=== PATIENT | female | born 1985 | race Caucasian/White ===

== ENCOUNTER 2019-08-30 02:52 | Inpatient (IN) ==
--- OUTSIDE RECORDS SUMMARY | 2019-08-30 02:55 | External Medical Summary | Continuity of Care Document ---
:1985 Author Name Tamika Pinto Address Unavailable Unavailable , Care Team Providers Name Role Phone Unavailable Unavailable Unavailable Blaze Pinto Unavailable [email or web address] [email or web address]., Jodi Unavailable Unavailable Mauricio Yarbrough M.D. Unavailable [email or web address] Unavailable Unavailable Unavailable Problems Encounter for gynecological examination without abnormal finding (V72.31) (Z01.419) Screening for STD (sexually transmitted disease) (V74.5) (Z1 1.3) Fatigue (780.79) (R53.83) Anxiety (300.00) (F41.9) Tobacco abuse (305.1) (Z72.0) Impaired fasting glucose (790.21) (R73.01) Allergies and Adverse Reactions Bactrim TABS (Allergy) Reaction: Rash Medications Methadone HCl SHERLYN , MosheDWoo Refills: 0 Chantix Continuing Month Davian 1 MG Oral T ablet; TAKE DIRECTED PER PACKAGE INSTRUCTIONS. Blair Thakur Start: 19-Sep-2016 Quantity: 1 56 Tablet Disp Pack Refills: 1 Chantix Starting Month Davian 0.5 MG X 11 & 1 MG X 42 Oral Tablet; TAKE DIRECTED PER PACKAGE INSTRUCTIONS. Blair Thakur Start: 19-Sep-2016 Quantity: 1 53 Tablet Disp Pack Refills: 0 Procedures History of Oral Surgery Tooth Extraction Status: Completed History of Section Low Transverse Status: Completed History of Oral Surgery Tooth Extraction Status: Completed History of Neck Surgery Status: Complete d History of Tubal Ligation Status: Comple camryn History of Supervision of normal Status: Completed Immunizations Influenza (Whole) On: 13-Aug-2011 10:25 Lot #: [id number], [employer] Family History Mother Family history of Anxiety (300.00) (F41.9) Status: Active Family history of gallbladder disease (V18.59) (Z83.79) Stat us: Active Family history of depression (V17.0) (Z81.8) Status: Active Grandmother Family history of Heart Disease (V17.49) Status: Active Grandfather Family history of Heart Disease (V17.49) Status: Active Family history of Alcohol Abuse Status: Active aunt Family history of Anxiety Status: Active uncle Family history of Anxiety Status: Active Unknown Family Member Family history of Anxiety Status: Active Comments: Fam alicia History Family history of Depression Status: Active Comments: Family History Father Family history of attention deficit hyperactivity diso rder (ADHD) Status: Active (V17.0) (Z81.8) Family history of diabetes mellitus (V18.0) (Z83.3) Status: Active natural daughter Family history of attention deficit hyperactivity diso rder (ADHD) Status: Active (V17.0) (Z81.8) Grandmother Family history of depression (V17.0) (Z81.8) Status: Active Social History - Smoking Status Smoker. current status unknown Plan of Treatment Planned Observations Planned Goals not documented Results No Known Results Results not documented
[2019-08-30] MEDS ORDERED: ALBUT/IPRATROP 3MG/0.5MG NEB 3 ML VIAL NEB ONE (03:43)
[2019-08-30] MEDS ORDERED: DiphenhydrAMINE HCL 50 MG/ML VIAL IV STA (03:43)
[2019-08-30] MEDS ORDERED: methylPREDNISolone 125 MG/2 ML VIAL IV STA (03:43)
[2019-08-30] MEDS ORDERED: PIPERACILLIN/TAZOBACTAM 4.5 GM/120 ML BAG IV ONE (04:00)
[2019-08-30] MEDS ORDERED: LEVOFLOXACIN/D5W 750 MG/150 ML BAG IV STA (04:00)
[2019-08-30] MEDS ORDERED: PIPERACILL/TAZOBAC CONSULT ACTIVE PRN (04:00)
[2019-08-30 04:41] LABS: Basophils # (auto) 0.02 K/uL (0-0.2); Basophils % (auto) 0.2 %; Eosinophils % (auto) 1.6 %; Hematocrit (blood only) 34.4 % (37-47); Hemoglobin 12.5 g/dL (12.0-16.0); Immature Granulocytes # (auto) 0.04 K/uL (0.00-0.02); Immature Granulocytes % (auto) 0.3 %; Lymphocytes # (auto) 1.18 K/uL (1.2-3.4); Lymphocytes % (auto) 9.6 %; Mean Corpuscular Hemoglobin 32.6 pg (25-34); Mean Corpuscular Hgb Conc 36.3 g/dL (32-36); Mean Corpuscular Volume 89.6 fL (80-100); Mean Platelet Volume 9.8 fL (7.4-10.4); Neutrophils # (auto) 9.74 K/uL (1.4-6.5); Neutrophils % (auto) 79.3 %; Platelet Count 240 K/uL (130-400); RDW Coefficient of Variation 11.5 % (11.5-14.5); RDW Standard Deviation 37.7 fL (36.4-46.3); Red Blood Count 3.84 M/uL (4.2-5.4); White Blood Count 12.28 K/uL (4.8-10.8)
[2019-08-30 04:52] LABS: INR 1.2 (0.9-1.1); Partial Thromboplastin Ratio 1.3; Partial Thromboplastin Time 34.1 Seconds (21.0-31.0); Prothrombin Time 11.7 Seconds (9.0-12.0)
[2019-08-30 04:59] LABS: Alanine Aminotransferase 45 U/L (12-78); Albumin Level 3.1 gm/dl (3.4-5.0); Aspartate Aminotransferase 44 U/L (15-37); Blood Urea Nitrogen 8 mg/dl (7-18); Calcium 8.2 mg/dl (8.5-10.1); Carbon Dioxide 23 mmol/L (21-32); Chloride 100 mmol/L (98-107); Creatinine Clr Calc Pharmacy 131.4 ml/min; Est GFR (African American) 133.6; Est GFR (Non-African American) 115.3; Glucose 79 mg/dl (70-99); Potassium 2.9 mmol/L (3.5-5.1); Sodium 134 mmol/L (136-145)
[2019-08-30 05:04] LABS: Albumin Globulin Ratio 0.8 (0.9-2); Alkaline Phosphatase 71 U/L (45-117); Bilirubin,Total 0.8 mg/dl (0.2-1); Creatine Kinase 681 U/L (26-192); Creatine Kinase MB 7.2 ng/ml (0.5-3.6); Globulin 3.9 gm/dl (2.5-4.0); Troponin I < 0.015 ng/ml (0-0.045)
[2019-08-30 05:06] LABS: Appearance Urine Cloudy (Clear); Bilirubin Urine Negative (Negative); Blood Urine Negative (Negative); Color Urine Yellow; Glucose Urine UA Negative (Negative); Ketones Urine 1+ (Negative); Leukocyte Esterase Urine 2+ (Negative); Nitrite Urine Negative (Negative); Protein Urine Negative (Negative); Specific Gravity Urine 1.008 (1.000-1.030); Urobilinogen Urine Negative (Negative); pH Urine 6.5 (4.5-7.5)
[2019-08-30] MEDS ORDERED: POTASSIUM CHLORIDE 20 MEQ TABCR PO STA (05:07)
[2019-08-30] MEDS ORDERED: ONDANSETRON INJ 2 MG/ML 2 ML VIAL IV STA (05:09)
[2019-08-30] MEDS ORDERED: SODIUM CHLORIDE 0.9% 1000ML 1,000 ML IV ONE ×2 (05:10→05:36)
[2019-08-30] MEDS ORDERED: SODIUM CHLORIDE 0.9% 500 ML IV ONE (05:36)
[2019-08-30] MEDS ORDERED: OPTIRAY 320 125ml IV PRN (05:41)
[2019-08-30 05:44] LABS: Bacteria Urine Automated Negative (Negative); Cast Urine Automated 0 /lpf (0-5); Epithelial Cell Urine Auto >30 /lpf (0-5); RBC Urine Automated 0-4 /hpf (0-4)
--- NOTE | 2019-08-30 05:46 | Emergency Department Note ---
Entered by Jace Woods acting as a scribe for Sukhdev Elmore MD History of Present Illness General Chief complaint: Rash Stated complaint: RASH,FEVER,COUGH Time Seen by Provider: 08/30/19 03:20 Source: patient History of Present Illness Onset (ago): day(s) 2 Location: head, chest and back Pain Consistency: + constant Quality: + other (rash) Associated symptoms: + other (Positive for itchiness, fever, and cough.) Treatments prior to arrival: other (Benadryl) The patient is a 34 year old female who presents to the emergency department with complaints of a constant rash beginning 2 days ago. The patient states that she developed a rash on her head, chest, and back 2 days ago. She notes that her rash is starting to itch. She reports that she has never had a rash like this before. The patient also complains of a fever and a cough. She states that she has had a cough for a few weeks. She notes that her cough started to get better, but she reports that it is getting worse again. The patient states that she took Benadryl 4 hours ago with mild relief of her symptoms. She notes that she is vaccinated. She reports that she did meth over the weekend. Home Medications Home Medications Medication Instructions Recorded Confirmed Type divalproex [Depakote ER] 0 mg PO DAILY 08/30/19 08/30/19 History Allergies Allergy/AdvReac Type Severity Reaction Status Date / Time Bactrim Allergy Intermediate HIVES Verified 10/07/15 01:17 sulfamethoxazole Allergy Intermediate HIVES Verified 08/30/19 03:19 trimethoprim Allergy Intermediate HIVES Verified 08/30/19 03:19 Penicillins Allergy Unknown PT DENIES Verified 08/30/19 03:19 PCN ALLERGY Past Med/Surg History Medical History Pain, dental (Acute) Tick bite of lower leg (Acute) Family History Other No significant family history Social History Preferred Language: Divehi Feels Safe at Home: Yes Smoking Status: Current every day smoker Hx Substance Use: Yes substance use type: methamphetamine Review of Systems See HPI for pertinent positives & negatives. and A total of 10 systems reviewed and were otherwise negative Physical Exam Vital Signs Vital Signs - 24 hr 08/30/19 03:06 08/30/19 03:45 08/30/19 04:14 Temperature 36.7 C Temperature Source Oral Sepsis Recent Fever Within 48 Hours No Sepsis New/Unexplained Change in Mental Status No Sepsis Action Taken by Nursing No Action Required Pulse Rate 88 Pulse Rate [Right Radial] 89 Pulse Rate from SpO2 Sensor Respiratory Rate 16 22 Respiratory Effort / Characteristics Non-Labored Spontaneous Blood Pressure 118/64 Blood Pressure [Left Arm] Blood Pressure Mean 82 Blood Pressure Mean [Left Arm] Pulse Oximetry 97 90 95 Oxygen Delivery Method Room Air Nebulizer Room Air Oxygen Flow Rate 6 08/30/19 04:39 08/30/19 04:41 08/30/19 05:00 Temperature Temperature Source Sepsis Recent Fever Within 48 Hours Sepsis New/Unexplained Change in Mental Status Sepsis Action Taken by Nursing Pulse Rate 99 H 109 H 104 H Pulse Rate [Right Radial] Pulse Rate from SpO2 Sensor 97 H 103 H 106 H Respiratory Rate 22 32 H 34 H Respiratory Effort / Characteristics Blood Pressure 111/67 Blood Pressure [Left Arm] Blood Pressure Mean 81 Blood Pressure Mean [Left Arm] Pulse Oximetry 97 96 95 Oxygen Delivery Method Oxygen Flow Rate 08/30/19 05:42 08/30/19 06:00 08/30/19 06:07 Temperature Temperature Source Sepsis Recent Fever Within 48 Hours Sepsis New/Unexplained Change in Mental Status Sepsis Action Taken by Nursing Pulse Rate 95 H 93 H Pulse Rate [Right Radial] Pulse Rate from SpO2 Sensor 95 H 93 H Respiratory Rate 26 H 32 H Respiratory Effort / Characteristics Blood Pressure 116/59 L 102/43 L Blood Pressure [Left Arm] Blood Pressure Mean 78 62 Blood Pressure Mean [Left Arm] Pulse Oximetry 91 91 87 L Oxygen Delivery Method Room Air Oxygen Flow Rate 08/30/19 06:08 08/30/19 07:00 Temperature Temperature Source Sepsis Recent Fever Within 48 Hours Sepsis New/Unexplained Change in Mental Status Sepsis Action Taken by Nursing Pulse Rate Pulse Rate [Right Radial] 94 H Pulse Rate from SpO2 Sensor Respiratory Rate 18 Respiratory Effort / Characteristics Blood Pressure Blood Pressure [Left Arm] 117/71 Blood Pressure Mean Blood Pressure Mean [Left Arm] 86 Pulse Oximetry 92 95 Oxygen Delivery Method Nasal Cannula Nasal Cannula Oxygen Flow Rate 2 2 GENERAL: Awake, alert, well-appearing, in no acute distress HENT: Normocephalic, atraumatic. Oropharynx unremarkable. EYES: Normal conjunctiva. Sclera non-icteric. NECK: Supple. No nuchal rigidity. FROM. No JVD. RESPIRATORY: Clear to auscultation. CARDIAC: Regular rate, normal rhythm. Extremities warm and well perfused. Pulses equal. ABDOMEN: Soft, non-distended. No tenderness to palpation. No rebound or guarding. No masses. RECTAL: Deferred. MUSCULOSKELETAL: Chest examination reveals no tenderness. The back is symmetrical on inspection without obvious abnormality. There is no CVA tenderness to palpation. No joint edema. LOWER EXTREMITIES: Calves are equal size bilaterally and non-tender. No edema. No discoloration. NEURO: Normal sensorium. No sensory or motor deficits noted. SKIN: No jaundice noted. Rash present on face, chest, and back that is urticarial in nature. Course 0340: The patient was evaluated in room B9. A complete history and physical exam was performed. 0615: Upon reevaluation, the patient is stable. I discussed the findings and the treatment plan with the patient. She expresses agreement and understanding. I spoke with Dr. Camara of the [facility]. The patient will be evaluated for further management. Consultations Consultation #1: I reviewed the patient's case with Dr. Camara - Hospitalist, [facility]. He will evaluate the patient for further management. Time: 06:15 Administered Medications Potassium Chloride (K Clark / Wtr) 10 meq in 100 mls @ 100 mls/hr IV Q1H WILNER Stop: 08/30/19 07:14 Last Infusion: 08/30/19 06:59 Dose: 0 mls/hr Documented by: [id number] Admin: 08/30/19 05:53 Dose: 100 mls/hr Documented by: [id number] Ioversol (Optiray 320 125ml) 87 ml IV ONCE PRN PRN Reason: Interaction Checking Stop: 09/03/19 05:40 Last Admin: 08/30/19 05:41 Dose: 87 ml Documented by: [id number] Discontinued Medications Albuterol (Duoneb) 12 ml NEB ONE ONE Stop: 08/30/19 03:44 Last Admin: 08/30/19 04:11 Dose: 12 ml Documented by: [id number] Diphenhydramine HCl (Benadryl) 50 mg IV NOW STA Stop: 08/30/19 03:44 Last Admin: 08/30/19 04:16 Dose: 50 mg Documented by: [id number] Ranitidine HCl 50 mg/ Dextrose 102 mls @ 200 mls/hr IV NOW STA Stop: 08/30/19 04:13 Last Infusion: 08/30/19 05:26 Dose: 0 mls/hr Documented by: [id number] Admin: 08/30/19 04:31 Dose: 200 mls/hr Documented by: [id number] Piperacillin Sod/Tazobactam Sod (Zosyn) 4.5 gm in 120 mls @ 240 mls/hr IV NOW ONE Stop: 08/30/19 04:29 Last Infusion: 08/30/19 05:26 Dose: 0 mls/hr Documented by: [id number] Admin: 08/30/19 04:35 Dose: 240 mls/hr Documented by: [id number] Levofloxacin/Dextrose (Levaquin/D5w) 750 mg in 150 mls @ 100 mls/hr IV NOW STA Stop: 08/30/19 05:29 Last Infusion: 08/30/19 06:59 Dose: 0 mls/hr Documented by: [id number] Admin: 08/30/19 05:25 Dose: 100 mls/hr Documented by: [id number] Sodium Chloride (Nss 1000ml) 1,000 mls @ 999 mls/hr IV .Q1H1M ONE Stop: 08/30/19 06:10 Last Infusion: 08/30/19 06:59 Dose: 0 mls/hr Documented by: [id number] Admin: 08/30/19 05:52 Dose: 999 mls/hr Documented by: [id number] Methylprednisolone (Solumedrol) 125 mg IV NOW STA Stop: 08/30/19 03:44 Last Admin: 08/30/19 04:16 Dose: 125 mg Documented by: [id number] Ondansetron HCl (Zofran) 4 mg IV NOW STA Stop: 08/30/19 05:10 Last Admin: 08/30/19 05:26 Dose: 4 mg Documented by: [id number] Potassium Chloride (Klor-Con M20) 40 meq PO NOW STA Stop: 08/30/19 05:08 Last Admin: 08/30/19 05:26 Dose: 40 meq Documented by: [id number] Medical Decision Making Differential Diagnosis Differential: Contact Dermatitis, Viral Exanthum, Urticaria, Allergic Reaction, SJS, Toxic Epidermal Necrolysis, Erythema Multiforme, Cellulitis, Scabies, HSV, Varicella, Zoster, Eczema, Staph Scalded Skin, Fungal, amongst other pathologies entertained. Medical Records Attestation: I reviewed the patient's medical records. Home Medications Current Medication List: was personally reviewed by me Laboratory Data Attestation: I reviewed the patient's lab results. Result diagrams: 08/30/19 04:32 08/30/19 04:32 Lab Results 08/30/19 08/30/19 08/30/19 Range/Units 04:07 04:32 04:32 WBC 12.28 H (4.8-10.8) K/uL RBC 3.84 L (4.2-5.4) M/uL Hgb 12.5 (12.0-16.0) g/dL Hct 34.4 L (37-47) % MCV 89.6 (80-100) fL MCH 32.6 (25-34) pg MCHC 36.3 H (32-36) g/dL RDW Std Deviation 37.7 (36.4-46.3) fL RDW Coeff of Kulwinder 11.5 (11.5-14.5) % Plt Count 240 (130-400) K/uL MPV 9.8 (7.4-10.4) fL Immature Gran % (Auto) 0.3 % Neut % (Auto) 79.3 % Lymph % (Auto) 9.6 % [place] % (Auto) 9.0 % Eos % (Auto) 1.6 % Baso % (Auto) 0.2 % Immature Gran # (Auto) 0.04 H (0.00-0.02) K/uL Neut # (Auto) 9.74 H (1.4-6.5) K/uL Lymph # (Auto) 1.18 L (1.2-3.4) K/uL [place] # (Auto) 1.10 H (0.11-0.59) K/uL Eos # (Auto) 0.20 (0-0.5) K/uL Baso # (Auto) 0.02 (0-0.2) K/uL PT 11.7 (9.0-12.0) Seconds INR 1.2 H (0.9-1.1) APTT 34.1 H (21.0-31.0) Seconds PTT Ratio 1.3 Sodium (136-145) mmol/L Potassium (3.5-5.1) mmol/L Chloride (98-107) mmol/L Carbon Dioxide (21-32) mmol/L Anion Gap (3-11) BUN (7-18) mg/dl Creatinine (0.6-1.2) mg/dl Est Cr Clr Drug Dosing ml/min Est GFR ( Amer) Est GFR (Non-Af Amer) BUN/Creatinine Ratio (10-20) Glucose (70-99) mg/dl Lactate 1.1 (0.4-2.0) mmol/L Calcium (8.5-10.1) mg/dl Phosphorus (2.5-4.9) mg/dl Magnesium (1.8-2.4) mg/dl Total Bilirubin (0.2-1) mg/dl AST (15-37) U/L ALT (12-78) U/L Alkaline Phosphatase (45-117) U/L Total Creatine Kinase (26-192) U/L CK-MB (CK-2) (0.5-3.6) ng/ml CK/CKMB % Calc (0-3.0) Troponin I (0-0.045) ng/ml Total Protein (6.4-8.2) gm/dl Albumin (3.4-5.0) gm/dl Globulin (2.5-4.0) gm/dl Albumin/Globulin Ratio (0.9-2) Urine Color Urine Appearance (Clear) Urine pH (4.5-7.5) Ur Specific May (1.000-1.030) Urine Protein (Negative) Urine Glucose (UA) (Negative) Urine Ketones (Negative) Urine Blood (Negative) Urine Nitrite (Negative) Urine Bilirubin (Negative) Urine Urobilinogen (Negative) Ur Leukocyte Esterase (Negative) Urine WBC (Auto) (0-5) /hpf Urine RBC (Auto) (0-4) /hpf U Hyaline Cast (Auto) (0-5) /lpf U Epithel Cells (Auto) (0-5) /lpf Urine Bacteria (Auto) (Negative) Urine Test (Negative) Urine Opiates Screen (Neg) Ur Methadone, Qual (Neg) Urine Barbiturates (Neg) Ur Phencyclidine (PCP) (Neg) U Amphetamin/Meth Scrn (Neg) MDMA (Ecstasy) Screen (Neg) U Benzodiazepines Scrn (Neg) Ur Cocaine Metabolite (Neg) U Marijuana (THC) Screen (Neg) 10/01/19 10/01/19 10/01/19 Range/Units 04:32 04:32 04:54 WBC (4.8-10.8) K/uL RBC (4.2-5.4) M/uL Hgb (12.0-16.0) g/dL Hct (37-47) % MCV (80-100) fL MCH (25-34) pg MCHC (32-36) g/dL RDW Std Deviation (36.4-46.3) fL RDW Coeff of Kulwinder (11.5-14.5) % Plt Count (130-400) K/uL MPV (7.4-10.4) fL Immature Gran % (Auto) % Neut % (Auto) % Lymph % (Auto) % [place] % (Auto) % Eos % (Auto) % Baso % (Auto) % Immature Gran # (Auto) (0.00-0.02) K/uL Neut # (Auto) (1.4-6.5) K/uL Lymph # (Auto) (1.2-3.4) K/uL [place] # (Auto) (0.11-0.59) K/uL Eos # (Auto) (0-0.5) K/uL Baso # (Auto) (0-0.2) K/uL PT (9.0-12.0) Seconds INR (0.9-1.1) APTT (21.0-31.0) Seconds PTT Ratio Sodium 134 L (136-145) mmol/L Potassium 2.9 L (3.5-5.1) mmol/L Chloride 100 (98-107) mmol/L Carbon Dioxide 23 (21-32) mmol/L Anion Gap 11.0 (3-11) BUN 8 (7-18) mg/dl Creatinine 0.66 (0.6-1.2) mg/dl Est Cr Clr Drug Dosing 131.4 ml/min Est GFR ( Amer) 133.6 Est GFR (Non-Af Amer) 115.3 BUN/Creatinine Ratio 12.0 (10-20) Glucose 79 (70-99) mg/dl Lactate (0.4-2.0) mmol/L Calcium 8.2 L (8.5-10.1) mg/dl Phosphorus 2.5 (2.5-4.9) mg/dl Magnesium 2.3 (1.8-2.4) mg/dl Total Bilirubin 0.8 (0.2-1) mg/dl AST 44 H (15-37) U/L ALT 45 (12-78) U/L Alkaline Phosphatase 71 (45-117) U/L Total Creatine Kinase 681 H (26-192) U/L CK-MB (CK-2) 7.2 H (0.5-3.6) ng/ml CK/CKMB % Calc 1.1 (0-3.0) Troponin I < 0.015 (0-0.045) ng/ml Total Protein 7.0 (6.4-8.2) gm/dl Albumin 3.1 L (3.4-5.0) gm/dl Globulin 3.9 (2.5-4.0) gm/dl Albumin/Globulin Ratio 0.8 L (0.9-2) Urine Color Yellow Urine Appearance Cloudy A (Clear) Urine pH 6.5 (4.5-7.5) Ur Specific May 1.008 (1.000-1.030) Urine Protein Negative (Negative) Urine Glucose (UA) Negative (Negative) Urine Ketones 1+ H (Negative) Urine Blood Negative (Negative) Urine Nitrite Negative (Negative) Urine Bilirubin Negative (Negative) Urine Urobilinogen Negative (Negative) Ur Leukocyte Esterase 2+ H (Negative) Urine WBC (Auto) 5-10 H (0-5) /hpf Urine RBC (Auto) 0-4 (0-4) /hpf U Hyaline Cast (Auto) 0 (0-5) /lpf U Epithel Cells (Auto) >30 H (0-5) /lpf Urine Bacteria (Auto) Negative (Negative) Urine Test (Negative) Urine Opiates Screen (Neg) Ur Methadone, Qual (Neg) Urine Barbiturates (Neg) Ur Phencyclidine (PCP) (Neg) U Amphetamin/Meth Scrn (Neg) MDMA (Ecstasy) Screen (Neg) U Benzodiazepines Scrn (Neg) Ur Cocaine Metabolite (Neg) U Marijuana (THC) Screen (Neg) 08/30/19 08/30/19 Range/Units 04:54 04:54 WBC (4.8-10.8) K/uL RBC (4.2-5.4) M/uL Hgb (12.0-16.0) g/dL Hct (37-47) % MCV (80-100) fL MCH (25-34) pg MCHC (32-36) g/dL RDW Std Deviation (36.4-46.3) fL RDW Coeff of Kulwinder (11.5-14.5) % Plt Count (130-400) K/uL MPV (7.4-10.4) fL Immature Gran % (Auto) % Neut % (Auto) % Lymph % (Auto) % [place] % (Auto) % Eos % (Auto) % Baso % (Auto) % Immature Gran # (Auto) (0.00-0.02) K/uL Neut # (Auto) (1.4-6.5) K/uL Lymph # (Auto) (1.2-3.4) K/uL [place] # (Auto) (0.11-0.59) K/uL Eos # (Auto) (0-0.5) K/uL Baso # (Auto) (0-0.2) K/uL PT (9.0-12.0) Seconds INR (0.9-1.1) APTT (21.0-31.0) Seconds PTT Ratio Sodium (136-145) mmol/L Potassium (3.5-5.1) mmol/L Chloride (98-107) mmol/L Carbon Dioxide (21-32) mmol/L Anion Gap (3-11) BUN (7-18) mg/dl Creatinine (0.6-1.2) mg/dl Est Cr Clr Drug Dosing ml/min Est GFR ( Amer) Est GFR (Non-Af Amer) BUN/Creatinine Ratio (10-20) Glucose (70-99) mg/dl Lactate (0.4-2.0) mmol/L Calcium (8.5-10.1) mg/dl Phosphorus (2.5-4.9) mg/dl Magnesium (1.8-2.4) mg/dl Total Bilirubin (0.2-1) mg/dl AST (15-37) U/L ALT (12-78) U/L Alkaline Phosphatase (45-117) U/L Total Creatine Kinase (26-192) U/L CK-MB (CK-2) (0.5-3.6) ng/ml CK/CKMB % Calc (0-3.0) Troponin I (0-0.045) ng/ml Total Protein (6.4-8.2) gm/dl Albumin (3.4-5.0) gm/dl Globulin (2.5-4.0) gm/dl Albumin/Globulin Ratio (0.9-2) Urine Color Urine Appearance (Clear) Urine pH (4.5-7.5) Ur Specific May (1.000-1.030) Urine Protein (Negative) Urine Glucose (UA) (Negative) Urine Ketones (Negative) Urine Blood (Negative) Urine Nitrite (Negative) Urine Bilirubin (Negative) Urine Urobilinogen (Negative) Ur Leukocyte Esterase (Negative) Urine WBC (Auto) (0-5) /hpf Urine RBC (Auto) (0-4) /hpf U Hyaline Cast (Auto) (0-5) /lpf U Epithel Cells (Auto) (0-5) /lpf Urine Bacteria (Auto) (Negative) Urine Test Negative (Negative) Urine Opiates Screen Neg (Neg) Ur Methadone, Qual Neg (Neg) Urine Barbiturates Neg (Neg) Ur Phencyclidine (PCP) Neg (Neg) U Amphetamin/Meth Scrn Pos H (Neg) MDMA (Ecstasy) Screen Neg (Neg) U Benzodiazepines Scrn Neg (Neg) Ur Cocaine Metabolite Neg (Neg) U Marijuana (THC) Screen Neg (Neg) Imaging Data Attestation: I personally reviewed and interpreted this imaging study as follows: My Impression: CHEST X-RAY: Bilateral pneumonia. No evidence of congestion or pneumothorax. Radiologist's Impression: Radiology results as stated below per my review and the radiologist's interpretation: CTA CHEST: No priors. There is artifact limiting evaluation for small peripheral PE. No central PE. Bilateral lung opacities suspicious for pneumonia. There are airspace opacities as well as tree-in-bud/nodular opacities. Adenopathy, example mediastinal and hilar stations. Suggest follow-up to resolution. Old granulomatous disease. Calcified and noncalcified lung nodules. Radiologist: Pj Calvo MD. ECG Data Attestation: I personally reviewed and interpreted this ECG as follows: Indication: other (rash) Rate (beats per minute): 89 Rhythm: normal sinus Findings: no ST depression and no ST elevation Additional Comments: Normal EKG. Blood Pressure Blood Pressure Findings: Elevated blood pressure Blood Pressure Disposition: further management by hospitalist MDM Narrative This is a 34-year-old female who presents emergency department complaining of a diffuse rash to her chest head and back. The patient does admit to using meth over the weekend. She also reports that she had a cough that had been improving which is now worsening. The patient was given a normal saline bolus x3 here in the emergency department. Her potassium was repleted. The patient's chest x- ray is concerning for multifocal pneumonia. The patient was sent for CAT scan of the chest. This was also concerning for PE. The patient's potassium was found to be low she was started on IV potassium and given oral potassium. She was also given Solu-Medrol Zantac and Benadryl for the rash. Due to the patient's tachycardia as well as her multiple findings she was discussed with the hospitalist service who agreed to admit the patient. Patient was in agreement with the treatment plan. Impression & Plan Rash, Pneumonia, Acute hypokalemia, Methamphetamine use, Pulmonary emboli Critical Care Time I have personally spent greater than 30 minutes of critical care time in the direct management of this patient. This includes bedside care, interpretation of diagnostic studies, and testing, discussion with consultants, patient, and family members, and other required patient management activities. This 30 minutes is in excess of all separately billable procedures. Discharge Plan Visit Data Chief Complaint: Rash Stated Complaint: RASH,FEVER,COUGH ED Provider: Sukdhev Elmore Discharge Problem: Rash, Pneumonia, Acute hypokalemia, Methamphetamine use, Pulmonary emboli Patient Disposition: Being Evaluated by Hospitalist Forms Stand Alone Forms: [employer] Prescriptions Prescriptions: No Action divalproex [Depakote ER] 500 mg Tablet Extended Release 24 Hr PO DAILY RF: 0 Referrals Referrals: PCP,NO [Primary Care Provider] - Discharge Problem: Pneumonia Qualifiers: Pneumonia type: due to unspecified organism Laterality: unspecified laterality Lung location: unspecified part of lung Qualified Code(s): J18.9 - Pneumonia, unspecified organism Pulmonary emboli Qualifiers: Pulmonary embolism type: unspecified Chronicity: unspecified Acute cor pulmonale presence: unspecified Qualified Code(s): I26.99 - Other pulmonary embolism without acute cor pulmonale The scribe's documentation has been prepared under my direction and personally reviewed by me in its entirety. I confirm that the note above accurately reflects all work, treatment, procedures, and medical decision making performed by me.
[2019-08-30] MEDS: POTASSIUM CHLORIDE / WTR 10 MEQ/100 ML PLCT IV SCH ×2 (05:53→07:00)
[2019-08-30 05:55] LABS: Magnesium 2.3 mg/dl (1.8-2.4); Phosphorus 2.5 mg/dl (2.5-4.9)
[2019-08-30 06:08] LABS: Pregnancy Test, Urine Negative (Negative)
[2019-08-30 06:25] LABS: Amphetamines+Metham, Urine Pos (Neg); Barbiturates, Urine Neg (Neg); Benzodiazepine, Urine Neg (Neg); Cocaine, Urine Neg (Neg); MDMA (Ecstacy), Urine Neg (Neg); Methadone, Urine Neg (Neg); Opiate, Urine Neg (Neg); Phencyclidine, Urine Neg (Neg)
[2019-08-30] MEDS ORDERED: DAPTOmycin 375 MG in SYRINGE 0 ML IV ONE (06:46)
--- NOTE | 2019-08-30 06:46 | Ultrasound Report ---
US venous doppler LE BI CLINICAL HISTORY: Pulmonary embolism. SHORTNESS OF BREATH AND COUGH COMPARISON STUDY: 05/29/2012 FINDINGS: Real-time and color flow Doppler imaging were performed. Flow was seen within the femoral, popliteal and calf veins with no intraluminal thrombus demonstrated. The saphenous vein is patent. IMPRESSION: No evidence of lower extremity DVT. Electronically signed by: Gaudencio Pratt M.D. 08/30/2019 6:44 AM
--- NOTE | 2019-08-30 07:27 | CT Scan Report ---
CHEST CTA for PULMONARY ARTERIES CT DOSE: 286.95 mGy.cm HISTORY: Shortness of breath. TECHNIQUE: Multiaxial CT images of the chest were performed following the intravenous administration of contrast to evaluate the pulmonary arteries. Maximal intensity projection images were also obtaine d. A dose lowering technique was utilized adhering to the principles of ALARA. COMPARISON STUDY: None. FINDINGS: Normal caliber thoracic aorta with no evidence for dissection. The heart is normal in size. No pleural or pericardial effusions. No filling defects within the pulmonary arteries to suggest pul monary embolus. The visualized liver and adrenal glands unremarkable. Punctate calcified granulomas w ithin the spleen. A single mildly enlarged right neck base/supra clavicular lymph node measuring 1.3 x 0.8 cm. Mildly enlarged mediastinal and bilateral hilar lymphadenopathy. This is most pronounced on the left which demonstrates a 1.4 cm left hilar lymph node. Normal esophagus. No suspicious lytic ar e blastic osseous lesions. No pneumothorax. The central airways demonstrate mild bronchial wall thick ening. Multifocal areas of consolidation with tree-in-bud nodular opacities seen primarily within the bilateral lower lung zones. This is most pronounced within the lingula and right lower lobe. IMPRESSION: 1. No evidence for pulmonary embolus. 2. Multifocal airspace opacities with tree-in-bud nodular opacities primarily within the bilateral lo wer lung zones. This favors a pneumonia could be due to aspiration. 3. Mediastinal and bilateral hilar lymphadenopathy. This may be reactive to the suspected pneumonia. However, 3-[address] follow-up recommended to ensure stability. Electronically signed by: Nik Sevilla M.D. 08/30/2019 7:25 AM
--- NOTE | 2019-08-30 07:39 | XRay Report ---
SINGLE VIEW CHEST CLINICAL HISTORY: Sepsis. FINDINGS: An AP, portable, upright chest radiograph is compared to study dated 05/29/2012. The examina tion is degraded by portable technique and patient rotation. The cardiomediastinal silhouette is unre markable. There is patchy airspace consolidation at both lung bases, left greater than right. No larg e pleural effusion or pneumothorax is seen. The bony thorax is grossly intact. IMPRESSION: Patchy airspace consolidation is seen at both lung bases. The appearance is typical for p neumonia/aspiration pneumonitis. Clinical correlation will be required and radiographic follow-up to resolution is recommended. Electronically signed by: Arturo Rodriguez M.D. 08/30/2019 7:38 AM
[2019-08-30] MEDS ORDERED: ACETAMINOPHEN 325 MG TAB PO PRN (08:45)
[2019-08-30] MEDS ORDERED: ONDANSETRON INJ 2 MG/ML 2 ML VIAL IV PRN (08:45)
[2019-08-30] MEDS ORDERED: INFLUENZA VIRUS QUAD VACCINE 0.5 ML SYR IM ONE (09:15)
[2019-08-30] MEDS ORDERED: INFLUENZA ADMINISTRATION CHARGE ONE (09:15)
[2019-08-30] MEDS ORDERED: VANCOMYCIN CONSULT ACTIVE PRN (09:30)
[2019-08-30] MEDS: NSS + 20MEQ KCL 20 MEQ/1,000 ML BAG IV SCH ×2 (09:30→17:40)
--- NOTE | 2019-08-30 09:34 | History & Physical Report ---
Date of Service August 30, 2019 Assessment & Plan (1) Pneumonia: multifocal pneumonia in bases of lungs suspect she had a viral illness for a few weeks, explains the nonproductive cough multiple episodes of vomiting on Thursday, may have aspirated will treat with Zosyn, levaquin and Vancomycin for 48 hours, taper appropriately received 2 liters NSS in the ED, will run NSS and K at 125cc/hr follow up blood cultures admit to telemetry for the first 24 hours for close monitoring repeat CBC in the AM (2) Acute hypokalemia: due to GI losses with vomiting will place 20mEq of K in IV fluids, give PO replacement BID repeat BMP in the AM (3) Methamphetamine use: admits to using on Thursday night unsure if using more often than that her mother says she has been in a program, had been clean she has been keeping a job will treat tremors with Ativan PRN (4) Rash: unclear etiology some areas appear like possible MRSA infection will treat with Vancomycin Benadryl PRN for itching (5) Sepsis: due to pneumonia treat with broad spectrum antibiotics and IV fluids (6) Acute respiratory failure with hypoxia: due to pneumonia, see above try to wean oxygen as tolerated History of Present Illness Chief Complaint: I have a rash and cough Primary Care Provider: NO PCP 34 yo female with history of bipolar disorder as well as methamphetamine abuse presents to the ED this morning c/o a rash on her chest, back and arms and a persistent cough. She says that she noticed the rash about a week ago, started on her chest and then spread. The rash itches periodically and she has been scratching it a lot. Never had a rash like this. No new medications. No new detergents. She also says that she has had a cough for three weeks. The cough has largely been nonproductive. It actually got better and then recently got worse over the past two days. She has been producing some sputum, more short of breath. Cannot recall any fever or chills or sweats. She says her appetite has been terrible the past week, little to eat or drink. She has a history of methamphetamine use, she had been clean for some time, in a support program. Un fortunately she used methamphetamine over the weekend, Thursday night. She was really sick on Thursday, vomiting at least 16 times. Her cough got worse afterwards so there is a chance she aspirated. She denies abdominal pain or diarrhea. She is very anxious, difficult time sleeping the past two days and she just feels exhausted. She does say she feels a little better after two liters of fluid and antibiotics in the ED. She has a history of bipolar disorder, she takes Lamictal 100mg in the evening, cannot remember if she took it last evening. No other medical history. Her family has a history of coronary disease, no known cancers in family. She smokes cigarettes daily, denies alcohol abuse, denies IV drug use. Allergies Allergy/AdvReac Type Severity Reaction Status Date / Time Bactrim Allergy Intermediate HIVES Verified 10/07/15 01:17 sulfamethoxazole Allergy Intermediate HIVES Verified 08/30/19 03:19 trimethoprim Allergy Intermediate HIVES Verified 08/30/19 03:19 Penicillins Allergy Unknown PT DENIES Verified 08/30/19 03:19 PCN ALLERGY Home Medications Home Medications Medication Instructions Recorded Confirmed Type divalproex [Depakote ER] 0 mg PO DAILY 08/30/19 08/30/19 History Past Med/Surg History Medical History Pain, dental (Acute) Tick bite of lower leg (Acute) Bipolar disorder Methamphetamine abuse Family History Other Coronary heart disease Social History Preferred Language: Afghan Communication Ability: Effective Digital Librarian Required: No Beliefs That Will Affect Care: None Current Living Situation: Other Current Living Situation Comment: lives at [facility] Other Information That Helps Us Care for You: No Feels Safe at Home: Yes Safety Concerns: Feels Safe At This Time Smoking Status: Current every day smoker Tobacco Type: cigarettes ; Cigarettes Per Day: 20 ; Do You Dip or Chew Tobacco: No ; Second Hand Exposure: No ; Tobacco Cessation Education Requested by Patient: No Hx Alcohol Use: No Hx Substance Use: Yes substance use type: methamphetamine Substance Use Type Other:: methamphetamine Last Used Substance: Unknown Review of Systems Review of Systems: All systems reviewed & are unremarkable except as noted in HPI & below Constitutional: + fatigue, + weakness and + insomnia; no fever, no chills and no sweats Respiratory: + cough, + chest congestion, + dyspnea, + dyspnea on exertion and + sputum production; no pain with cough Cardiovascular: no chest pain, no palpitations, no syncope and no edema Gastrointestinal: + nausea and + vomiting; no abdominal pain, no constipation, no diarrhea/loose stools and no melena Genitourinary: no dysuria, no difficulty urinating and no urinary frequency Musculoskeletal: + myalgia and + muscle weakness; no back pain and no joint pain Integumentary: + rash (chest, back, abdomen, arms) Neurologic: + tremor(s) Physical Exam Constitutional: well developed, well nourished, + ill appearing and + disheveled; + not appropriately hydrated Eyes: PERRL, conjunctivae normal, anicteric sclerae ENMT: external ear and nose normal, oropharynx normal Neck: trachea midline, no thyromegaly Respiratory: normal respiratory effort; no respiratory distress Auscultation: + crackles (bases); no rales, no rhonchi and no wheezes Cardiovascular: RRR, no murmur, no edema Gastrointestinal (Abdomen): normal bowel sounds, soft, nontender, no hepatosplenomegaly Musculoskeletal: no cyanosis or clubbing, extremities motor strength 5/5 Skin: normal turgor and + rash (maculopapular, red, raised, excoriations over chest, back, arms, abdomen) Neurologic: patellar DTR's 2+ bilat, sensation intact and PERRL, EOMI, accommodation nl, no face palsy, no dysarthria Psychiatric: Orientation: alert and oriented x 3 Apperance: + disheveled Eye Contact: + poor eye contact Motor Behavior: + psychomotor agitation Speech: normal rate/rhythm/volume of speech Affect: + anxious affect Mood: + anxious mood Lymphatic: no cervical or axillary lymphadenopathy Results & Data Vital Signs (Past 12 Hours) Vital Signs Temp Pulse Pulse Resp BP BP Pulse Ox 08/30/19 08:39 37.0 C 83 24 112/62 97 08/30/19 07:30 86 16 119/58 L 97 08/30/19 07:00 94 H 18 117/71 95 08/30/19 06:08 92 08/30/19 06:07 87 L 08/30/19 06:00 93 H 32 H 102/43 L 91 08/30/19 05:42 95 H 26 H 116/59 L 91 08/30/19 05:00 104 H 34 H 95 08/30/19 04:41 109 H 32 H 96 08/30/19 04:39 99 H 22 111/67 97 08/30/19 04:14 89 22 95 08/30/19 03:45 90 08/30/19 03:06 36.7 C 88 16 118/64 97 Laboratory Results Laboratory Results - last 24 hr 08/30/19 08/30/19 08/30/19 04:07 04:32 04:32 WBC 12.28 H RBC 3.84 L Hgb 12.5 Hct 34.4 L MCV 89.6 MCH 32.6 MCHC 36.3 H RDW Std Deviation 37.7 RDW Coeff of Kulwinder 11.5 Plt Count 240 MPV 9.8 Immature Gran % (Auto) 0.3 Neut % (Auto) 79.3 Lymph % (Auto) 9.6 [place] % (Auto) 9.0 Eos % (Auto) 1.6 Baso % (Auto) 0.2 Immature Gran # (Auto) 0.04 H Neut # (Auto) 9.74 H Lymph # (Auto) 1.18 L [place] # (Auto) 1.10 H Eos # (Auto) 0.20 Baso # (Auto) 0.02 PT 11.7 INR 1.2 H APTT 34.1 H PTT Ratio 1.3 Sodium Potassium Chloride Carbon Dioxide Anion Gap BUN Creatinine Est Cr Clr Drug Dosing Est GFR ( Amer) Est GFR (Non-Af Amer) BUN/Creatinine Ratio Glucose Lactate 1.1 Calcium Phosphorus Magnesium Total Bilirubin AST ALT Alkaline Phosphatase Total Creatine Kinase CK-MB (CK-2) CK/CKMB % Calc Troponin I Total Protein Albumin Globulin Albumin/Globulin Ratio Urine Color Urine Appearance Urine pH Ur Specific [place] Urine Protein Urine Glucose (UA) Urine Ketones Urine Blood Urine Nitrite Urine Bilirubin Urine Urobilinogen Ur Leukocyte Esterase Urine WBC (Auto) Urine RBC (Auto) U Hyaline Cast (Auto) U Epithel Cells (Auto) Urine Bacteria (Auto) Urine Test POC Ur Test Nasal Screen MRSA (PCR) Urine Opiates Screen Ur Methadone, Qual Urine Barbiturates Ur Phencyclidine (PCP) U Amphetamines Confirm U Amphetamin/Meth Scrn U Methamphetamin Confrm MDMA (Ecstasy) Screen U Benzodiazepines Scrn Ur Cocaine Metabolite U Marijuana (THC) Screen 08/30/19 08/30/19 08/30/19 04:32 04:32 04:54 WBC RBC Hgb Hct MCV MCH MCHC RDW Std Deviation RDW Coeff of Kulwinder Plt Count MPV Immature Gran % (Auto) Neut % (Auto) Lymph % (Auto) [place] % (Auto) Eos % (Auto) Baso % (Auto) Immature Gran # (Auto) Neut # (Auto) Lymph # (Auto) [place] # (Auto) Eos # (Auto) Baso # (Auto) PT INR APTT PTT Ratio Sodium 134 L Potassium 2.9 L Chloride 100 Carbon Dioxide 23 Anion Gap 11.0 BUN 8 Creatinine 0.66 Est Cr Clr Drug Dosing 131.4 Est GFR ( Amer) 133.6 Est GFR (Non-Af Amer) 115.3 BUN/Creatinine Ratio 12.0 Glucose 79 Lactate Calcium 8.2 L Phosphorus 2.5 Magnesium 2.3 Total Bilirubin 0.8 AST 44 H ALT 45 Alkaline Phosphatase 71 Total Creatine Kinase 681 H CK-MB (CK-2) 7.2 H CK/CKMB % Calc 1.1 Troponin I < 0.015 Total Protein 7.0 Albumin 3.1 L Globulin 3.9 Albumin/Globulin Ratio 0.8 L Urine Color Yellow Urine Appearance Cloudy A Urine pH 6.5 Ur Specific [place] 1.008 Urine Protein Negative Urine Glucose (UA) Negative Urine Ketones 1+ H Urine Blood Negative Urine Nitrite Negative Urine Bilirubin Negative Urine Urobilinogen Negative Ur Leukocyte Esterase 2+ H Urine WBC (Auto) 5-10 H Urine RBC (Auto) 0-4 U Hyaline Cast (Auto) 0 U Epithel Cells (Auto) >30 H Urine Bacteria (Auto) Negative Urine Test POC Ur Test Nasal Screen MRSA (PCR) Urine Opiates Screen Ur Methadone, Qual Urine Barbiturates Ur Phencyclidine (PCP) U Amphetamines Confirm U Amphetamin/Meth Scrn U Methamphetamin Confrm MDMA (Ecstasy) Screen U Benzodiazepines Scrn Ur Cocaine Metabolite U Marijuana (THC) Screen 08/30/19 08/30/19 08/30/19 04:54 04:54 04:54 WBC RBC Hgb Hct MCV MCH MCHC RDW Std Deviation RDW Coeff of Kulwinder Plt Count MPV Immature Gran % (Auto) Neut % (Auto) Lymph % (Auto) [place] % (Auto) Eos % (Auto) Baso % (Auto) Immature Gran # (Auto) Neut # (Auto) Lymph # (Auto) [place] # (Auto) Eos # (Auto) Baso # (Auto) PT INR APTT PTT Ratio Sodium Potassium Chloride Carbon Dioxide Anion Gap BUN Creatinine Est Cr Clr Drug Dosing Est GFR ( Amer) Est GFR (Non-Af Amer) BUN/Creatinine Ratio Glucose Lactate Calcium Phosphorus Magnesium Total Bilirubin AST ALT Alkaline Phosphatase Total Creatine Kinase CK-MB (CK-2) CK/CKMB % Calc Troponin I Total Protein Albumin Globulin Albumin/Globulin Ratio Urine Color Urine Appearance Urine pH Ur Specific [place] Urine Protein Urine Glucose (UA) Urine Ketones Urine Blood Urine Nitrite Urine Bilirubin Urine Urobilinogen Ur Leukocyte Esterase Urine WBC (Auto) Urine RBC (Auto) U Hyaline Cast (Auto) U Epithel Cells (Auto) Urine Bacteria (Auto) Urine Test Negative POC Ur Test Pending Nasal Screen MRSA (PCR) Urine Opiates Screen Neg Ur Methadone, Qual Neg Urine Barbiturates Neg Ur Phencyclidine (PCP) Neg U Amphetamines Confirm U Amphetamin/Meth Scrn Pos H U Methamphetamin Confrm MDMA (Ecstasy) Screen Neg U Benzodiazepines Scrn Neg Ur Cocaine Metabolite Neg U Marijuana (THC) Screen Neg 08/30/19 08/30/19 04:54 08:45 WBC RBC Hgb Hct MCV MCH MCHC RDW Std Deviation RDW Coeff of Kulwinder Plt Count MPV Immature Gran % (Auto) Neut % (Auto) Lymph % (Auto) [place] % (Auto) Eos % (Auto) Baso % (Auto) Immature Gran # (Auto) Neut # (Auto) Lymph # (Auto) [place] # (Auto) Eos # (Auto) Baso # (Auto) PT INR APTT PTT Ratio Sodium Potassium Chloride Carbon Dioxide Anion Gap BUN Creatinine Est Cr Clr Drug Dosing Est GFR ( Amer) Est GFR (Non-Af Amer) BUN/Creatinine Ratio Glucose Lactate Calcium Phosphorus Magnesium Total Bilirubin AST ALT Alkaline Phosphatase Total Creatine Kinase CK-MB (CK-2) CK/CKMB % Calc Troponin I Total Protein Albumin Globulin Albumin/Globulin Ratio Urine Color Urine Appearance Urine pH Ur Specific [place] Urine Protein Urine Glucose (UA) Urine Ketones Urine Blood Urine Nitrite Urine Bilirubin Urine Urobilinogen Ur Leukocyte Esterase Urine WBC (Auto) Urine RBC (Auto) U Hyaline Cast (Auto) U Epithel Cells (Auto) Urine Bacteria (Auto) Urine Test POC Ur Test Nasal Screen MRSA (PCR) Pending Urine Opiates Screen Ur Methadone, Qual Urine Barbiturates Ur Phencyclidine (PCP) U Amphetamines Confirm Pending U Amphetamin/Meth Scrn U Methamphetamin Confrm Pending MDMA (Ecstasy) Screen U Benzodiazepines Scrn Ur Cocaine Metabolite U Marijuana (THC) Screen Diagnostic Findings CHEST CTA for PULMONARY ARTERIES IMPRESSION: 1. No evidence for pulmonary embolus. 2. Multifocal airspace opacities with tree-in-bud nodular opacities primarily within the bilateral lower lung zones. This favors a pneumonia could be due to aspiration. 3. Mediastinal and bilateral hilar lymphadenopathy. This may be reactive to the suspected pneumonia. However, 3-[address] follow-up recommended to ensure stability. US venous doppler LE BI IMPRESSION: No evidence of lower extremity DVT. Code Status & VTE Plan Code Status full code VTE Prophylaxis Plan VTE Prophylaxis will be ordered: Yes PG Care Time/CCT Total # of Minutes Spent Total Time Spent with Patient: Total time spent is greater than 50% in coordination of care (as documented) at patient's floor/unit and/or counseling patient: (1) Pneumonia Laterality: unspecified laterality Lung location: unspecified part of lung Pneumonia type: due to unspecified organism Qualified Code(s): J18.9 - Pneumonia, unspecified organism
[2019-08-30] MEDS ORDERED: VANCOMYCIN HCL 2,000 MG in SODIUM CHLORIDE 0.9% 500 ML IV ONE (10:00)
[2019-08-30] MEDS: PIPERACILLIN/TAZOBACTAM 3.375 GM in DEXTROSE 5% 100 ML IV SCH ×2 (10:11→17:41)
[2019-08-30] MEDS: ENOXAPARIN INJ 40 MG/0.4 ML SYR SQ SCH (10:11)
[2019-08-30] MEDS: LORazepam 0.5 MG TAB PO PRN ×2 (10:21→21:17)
[2019-08-30] MEDS: GUAIFENESIN/CODEINE 100MG/10MG 5ML UDC PO PRN ×2 (10:21→21:17)
--- NOTE | 2019-08-30 10:44 | Pharmacy Report ---
Pharmacy Abx Dose Short Note - Date of Service August 30, 2019 - Assessment & Plan Assessment * Ms Slaughter is a 34 year old F receiving Vanc/Zosyn/Levaquin for treatment of pulmonary infxn/SSTI. * Patient vomited multiple times on 08/28/19, after methamphetamine use the night prior. Concern for aspiration pneumonia. * Patient has a diffuse rash on back/chest/face, the appearance of which is concerning for MRSA. * Patient has been afebrile, WBC 12.3 on admission, lactate 1.1 * MRSA swab, blood cultures, urine culture, and strep throat culture are all pending. Rapid strep negative. Plan Vancomycin * Vanc 2gm (~25mg/kg) IV x1 dose, then * Vanc 1250mg IV q8h * Patient's estimated p'kinetic parameters (based on CrCl >120mL/min): * Vd ~ 0.7L/kg Ke ~ 0.104/hr t1/2 ~ 6.7hr * Goal trough level for pulm infxn/SSTI/sepsis: 15 to 20 mcg/mL * Trough level ordered for tomorrow morning, prior to the 4th overall dose. This should be fairly close to steady state. Zosyn * Zosyn 4.5gm x1 dose in ED, then * Zosyn 3.375gm IV q8h Levaquin 750mg IV q24h Pharmacy will continue to follow and will adjust dose/frequency as necessary. Thank you.
[2019-08-30] MEDS ORDERED: COUGH DROP (SUGAR FREE) LOZ 24 LOZ/1 BOX BUCCAL PRN (10:51)
[2019-08-30] MEDS ORDERED: COUGH DROP (SUGAR FREE) LOZ 24 LOZ/1 BOX BUCCAL ONE (10:53)
[2019-08-30] MEDS: DiphenhydrAMINE HCL 50 MG/ML VIAL IV PRN ×2 (14:25→23:35)
[2019-08-30] MEDS ORDERED: LORazepam 0.5 MG/1 ML VIAL IV STA (15:26)
[2019-08-30] MEDS: VANCOMYCIN HCL 1,250 MG in SODIUM CHLORIDE 0.9% 250 ML IV SCH (17:41)
[2019-08-30] MEDS ORDERED: lamoTRIgine 100 MG TAB PO SCH (21:00)
[2019-08-30] MEDS: NICOTINE 7 MG/24 HR TDSY TD SCH (21:18)
[2019-08-30] MEDS ORDERED: ALBUT/IPRATROP 3MG/0.5MG NEB 3 ML VIAL NEB PRN (22:00)
[2019-08-31] MEDS ORDERED: LORazepam 1 MG/2 ML VIAL IV ONE (00:45)
[2019-08-31] MEDS: VANCOMYCIN HCL 1,250 MG in SODIUM CHLORIDE 0.9% 250 ML IV SCH (01:32)
[2019-08-31] MEDS: PIPERACILLIN/TAZOBACTAM 3.375 GM in DEXTROSE 5% 100 ML IV SCH (01:33)
[2019-08-31] MEDS: NSS + 20MEQ KCL 20 MEQ/1,000 ML BAG IV SCH (01:44)
[2019-08-31] MEDS ORDERED: LEVOFLOXACIN/D5W 750 MG/150 ML BAG IV SCH (06:00)
[2019-08-31 07:32] VITALS: TEMP 98.6; O2SAT 94
[2019-08-31] MEDS: DiphenhydrAMINE HCL 50 MG/ML VIAL IV PRN (08:03)
[2019-08-31] MEDS: LORazepam 0.5 MG TAB PO PRN (08:03)
[2019-08-31] MEDS: NICOTINE 7 MG/24 HR TDSY TD SCH (08:03)
[2019-08-31] MEDS: ENOXAPARIN INJ 40 MG/0.4 ML SYR SQ SCH (08:06)
[2019-08-31] MEDS ORDERED: VANCOMYCIN TROUGH ONE (09:30)
[2019-08-31 09:46] LABS: Basophils # (auto) 0.02 K/uL (0-0.2); Basophils % (auto) 0.2 %; Eosinophils # (auto) 0.23 K/uL (0-0.5); Eosinophils % (auto) 1.8 %; Hemoglobin 11.7 g/dL (12.0-16.0); Immature Granulocytes # (auto) 0.07 K/uL (0.00-0.02); Immature Granulocytes % (auto) 0.5 %; Lymphocytes # (auto) 1.13 K/uL (1.2-3.4); Lymphocytes % (auto) 8.7 %; Mean Corpuscular Hemoglobin 32.8 pg (25-34); Mean Corpuscular Hgb Conc 35.5 g/dL (32-36); Mean Corpuscular Volume 92.4 fL (80-100); Monocytes # (auto) 0.51 K/uL (0.11-0.59); Monocytes % (auto) 3.9 %; Neutrophils # (auto) 11.04 K/uL (1.4-6.5); Neutrophils % (auto) 84.9 %; Platelet Count 287 K/uL (130-400); RDW Coefficient of Variation 12.3 % (11.5-14.5); RDW Standard Deviation 41.7 fL (36.4-46.3); Red Blood Count 3.57 M/uL (4.2-5.4)
[2019-08-31 10:12] VITALS: BP 125/81; PULSE 74
[2019-08-31] MEDS ORDERED: LORazepam 0.5 MG TAB PO STA (10:15)
[2019-08-31 10:19] LABS: BUN Creatinine Ratio 9.5 (10-20); Calcium 8.5 mg/dl (8.5-10.1); Creatinine Clr Calc Pharmacy 126.9 ml/min; Potassium 3.7 mmol/L (3.5-5.1)
--- NOTE | 2019-08-31 10:34 | Discharge Summary ---
Date of Service August 31, 2019 Admission HPI Per Admitting Provider 34 yo female with history of bipolar disorder as well as methamphetamine abuse presents to the ED this morning c/o a rash on her chest, back and arms and a persistent cough. She says that she noticed the rash about a week ago, started on her chest and then spread. The rash itches periodically and she has been scratching it a lot. Never had a rash like this. No new medications. No new detergents. She also says that she has had a cough for three weeks. The cough has largely been nonproductive. It actually got better and then recently got worse over the past two days. She has been producing some sputum, more short of breath. Cannot recall any fever or chills or sweats. She says her appetite has been terrible the past week, little to eat or drink. She has a history of methamphetamine use, she had been clean for some time, in a support program. Unfortunately she used methamphetamine over the weekend, Thursday night. She was really sick on Thursday, vomiting at least 16 times. Her cough got worse afterwards so there is a chance she aspirated. She denies abdominal pain or diarrhea. She is very anxious, difficult time sleeping the past two days and she just feels exhausted. She does say she feels a little better after two liters of fluid and antibiotics in the ED. She has a history of bipolar disorder, she takes Lamictal 100mg in the evening, cannot remember if she took it last evening. No other medical history. Her family has a history of coronary disease, no known cancers in family. She smokes cigarettes daily, denies alcohol abuse, denies IV drug use. Principal Diagnosis Bilateral pneumonia Discharge Exam Constitutional well developed and well nourished Eyes PERRL, conjunctivae normal, anicteric sclerae ENMT external ear and nose normal, oropharynx normal Neck trachea midline, no thyromegaly Respiratory normal respiratory effort; no respiratory distress Auscultation: + crackles (bases); no rales, no rhonchi and no wheezes Cardiovascular RRR, no murmur, no edema Gastrointestinal (Abdomen) normal bowel sounds, soft, nontender, no hepatosplenomegaly Musculoskeletal no cyanosis or clubbing, extremities motor strength 5/5 Skin normal turgor and + rash (maculopapular, red, raised, excoriations over chest, back, arms, abdomen) Neurologic patellar DTR's 2+ bilat, sensation intact and PERRL, EOMI, accommodation nl, no face palsy, no dysarthria Psychiatric Orientation: alert and oriented x 3 Eye Contact: + poor eye contact Motor Behavior: + psychomotor agitation Speech: normal rate/rhythm/volume of speech Affect: + anxious affect Mood: + anxious mood Lymphatic no cervical or axillary lymphadenopathy Discharge Data Allergies Allergy/AdvReac Type Severity Reaction Status Date / Time Bactrim Allergy Intermediate HIVES Verified 10/07/15 01:17 sulfamethoxazole Allergy Intermediate HIVES Verified 08/30/19 03:19 trimethoprim Allergy Intermediate HIVES Verified 08/30/19 03:19 Penicillins Allergy Unknown PT DENIES Verified 08/30/19 03:19 PCN ALLERGY Consultations 08/30/19 06:07 ED Decision to Admit Stat Ordered Studies 08/30/19 04:51 CT angio chest PE protocol Urgent 08/30/19 06:09 US venous doppler [facility] Stat Hospital Course (1) Pneumonia: multifocal pneumonia in bases of lungs suspect she had a viral illness for a few weeks, explains the nonproductive cough multiple episodes of vomiting on Thursday, may have aspirated treated with Zosyn, levaquin and Vancomycin on admission received 2 liters NSS in the ED, will run NSS and K at 125cc/hr blood cultures negative no fever, WBC stable at 13k, breathing much better, off of oxygen lungs clear on exam will d/c home on Doxycycline 100mg BID to complete a 7 day course total (2) Acute hypokalemia: due to GI losses with vomiting resolved on discharge, K up to 3.7 (3) Methamphetamine use: admits to using on Thursday night (two days prior to admission) unsure if using more often than that, she denies it, says it was a one time slip over the weekend her mother says she has been in a program, had been clean she has been keeping a job refusing any services for drug rehab advised her to not use Methamphetamine as it can lead to multiple health risks these include increased mortality, illness, hospitalizations suspect that the rash is due to methamphetamine use (4) Rash: unclear etiology but appearance is that of methamphetamine rash some areas appear like possible MRSA infection plan: educated patient on importance of good hygiene, clean skin at least once a day with soap and water Prednisone 20mg daily for 5 days to decrease inflammation Doxycycline 100mg BID for 10 days to cover any possible MRSA infection Benadryl PRN for itching no further methamphetamine use (5) Sepsis: due to pneumonia treated with broad spectrum antibiotics and IV fluids resolved in 24 hours (6) Acute respiratory failure with hypoxia: due to pneumonia, see above weaned to room air this morning, breathing well, no distress Total Time Total Time Spent Total Time Spent (In Minutes): 32 minutes Total Time Includes: Examination of the Patient, Discharge Planning, Medication Reconciliation and Other (discussed with family/friends) Discharge Plan Discharge Items Patient Disposition: Home - Self-Care Reason For Visit: PNEUMONIA Discharge Diagnosis: Community acquired pneumonia Diffuse rash, likely related to methamphetamine use with superficial infection Anxiety, Bipolar disorder Tobacco abuse Condition on Discharge: Good Health Concerns: need to stay clean, methamphetamine use increases risk of severe infections Goals: complete treatment of pneumonia treat rash with antibiotics, low dose steroids, benadryl and good hygiene Activity: Resume your previous activity Non-emergency contact: Primary Care Provider Call non-emergency contact if: you have any medication questions, your symptoms worsen and you have a fever Follow-up/Referrals: PCP,NO [Primary Care Provider] - Diet: Regular Addtl Attending Provider Instructions: Medications: - DOXYCYCLINE: will use for both pneumonia as well as bacterial component of skin rash/infection, take for 10 more days - PREDNISONE: 20mg daily for 5 days to help resolve rash - BENADRYL: use as needed every 8 hours for itching, can increase to 50mg if needed, this is over the counter Bilateral pneumonia improved with broad spectrum antibiotics and IV fluids and rest will continue treatment with Doxycycline as it will provide skin coverage for any secondary bacterial infections continue to stay well hydrated, well nourished, get rest over next few days Diffuse skin rash classic appearance of rash that can be seen with methamphetamine use methamphetamine use causes itching of skin that leads to scratching and open sores keys to treatment: stop using Methamphetamine proper hygiene, need to clean skin at least once daily with soap and water will use Prednisone 20mg daily for 5 days to decrease inflammation Doxycycline 100mg twice a day for 10 days to treat possible secondary bacterial component use Benadryl as needed for itching if no improvement over the next 7-10 days then recommend follow up with primary care doctor Bipolar disorder: continue to take Lamictal 100mg in the evening Tobacco abuse: recommend stop smoking as this will put you at higher risk of getting pneumonia, puts you at risk for lung cancer in the future as well as lung disease Pending Studies at Discharge: No Stand-Alone Forms: [facility] Medications and DC Order Prescriptions: New lamotrigine 100 mg Tablet 100 mg PO QPM 30 Days Qty: 30 RF: 1 prednisone 20 mg tablet 20 mg PO DAILY 5 Days Qty: 5 RF: 0 diphenhydramine HCl [Benadryl Allergy] 25 mg tablet 25 mg PO Q8H PRN (Reason: itching) Qty: 30 RF: 0 doxycycline hyclate 100 mg capsule 100 mg PO BID 10 Days Qty: 20 RF: 0 Discontinued divalproex [Depakote ER] 500 mg Tablet Extended Release 24 Hr PO DAILY RF: 0 Discharge Orders: Discharge Order (Routine); Ordered 08/31/19 Ordered By: Tate Trujillo Admission Data Admit Date/Time: 08/30/19 07:14 Attending Provider: Tate Trujillo Admit Provider: Tate Trujillo Primary Care Provider: PCP,NO Other Providers: Sanjeev Camara Other Interventions: Discharge Summary Assessment (RN) Last Done: 08/31/19 10:10
[2019-09-01 10:55] LABS: Amphetamine Urine, Confirm 1960 NG/ML (CUTOFF=250); Methamphetamine, Ur Confirm 14800 NG/ML (CUTOFF=250)
== END 2019-08-31 10:53 | disposition home or self-care (01) | DRG 871 ==
LOC: ED 02:52 → 1E 07:14 → 2S 14:22

== ENCOUNTER 2024-08-12 10:30 | Inpatient (IN) ==
--- NOTE | 2024-08-12 10:38 | Emergency Department Note ---
Impression & Plan Right lower lobe pneumonia, Hyponatremia, Headache, Fever ED Provider Note NAME: JOSEPH MICHELLE AGE: 39 SEX: F : 1985 ARRIVES VIA: Ambulance INFORMANT: Patient, triage note, EMS report ED PROVIDER(S): Shukri Dennis MD CHIEF COMPLAINT: Headache, fever MEDICAL DECISION MAKING: Patient presents due to concern for headache and fever. IV was established and blood work was obtained along with a Bio[employer] chest x-ray. The patient was ordered IV meds to help with headache. The patient did receive Tylenol Toradol and Zofran en route. Patient's blood work shows a white count of 14 with normal H&H and platelet count sodium 125. Calcium slightly low at 8.4. Urine and serum osmolality ordered along with urine electrolytes. BioFire negative. The patient's chest x-ray did show concern for right-sided lower lobe pneumonia. Patient was ordered IV Rocephin and p.o. azithromycin. Patient CT of the head is negative. Upon reassessment the patient had virtual resolution of her headache. The patient is not meningitic childlike she requires an LP at this time. Given the patient's hyponatremia and extensive pneumonia I did speak the on-call hospitalist service and the patient was admitted by Dr. Rausch. Discussion w/ other healthcare providers: None Prior /Outside records reviewed: None Differential diagnosis: Viral syndrome, otitis, pharyngitis, pneumonia, influenza, meningitis, urinary tract infection, sepsis, bacteremia, as well as other pathologies. Diagnostics, as interpreted by me: ECG: None Cardiac monitoring: An order was placed for continuous cardiac monitoring. The monitor shows a rate of 62 with sinus rhythm. Patient was placed on pulse oximetry Medical decision rules: None Imaging studies: I informally interpreted the patient's chest x-ray shows right lower lobe pneumonia with formal report to follow. HPI: Patient presents due to concern for headache fever and chest congestion. The patient reports that he said about 2 days of symptoms. The patient believes they have gotten progressively worse. She did take some at home Tylenol. Headache is frontal with radiation to the top of the head. No falls or trauma. Patient does not take any blood thinning medications. No prior history of migraines. The patient did have a fever noted by EMS and did receive Tylenol Toradol and Zofran. Patient does complain of photophobia and phonophobia. Patient denies any numbness ting or focal weakness. No neck stiffness. Patient denies any sore throat. The patient does have some mild right-sided otalgia. Patient does vape tobacco but denies any drug use or alcohol use. Patient denies any numbness tingling or focal weakness. PAST MEDICAL HISTORY: See Below PAST SURGICAL HISTORY: See Below SOCIAL HISTORY: See Below HOME MEDICATIONS: See Below ALLERGIES: See Below VITALS: See Below PHYSICAL EXAMINATION: GENERAL: Mildly uncomfortable in appearance but nontoxic. EYE EXAM: Normal conjunctiva. PERRL, no anisocoria and EOM's grossly intact w/o pain. OROPHARYNX: Moist mucus membranes, grossly normal dentition. NECK: Trachea midline, no stridor. Supple, no nuchal rigidity, no adenopathy, non-tender. No signs of meningismus. FROM of the neck with good chin to chest and neck extension. Negative Brudzinski. LUNGS: Clear to auscultation. Normal chest wall mechanics. HEART: NSR, no MRG. ABDOMEN: Abdomen soft, non-tender, no masses, no rebound or guarding. BACK: No CVA TTP. SKIN: No rashes and no bruising. UPPER EXTREMITIES: Upper extremities are grossly normal. LOWER EXTREMITIES: Grossly normal, no edema. NEURO EXAM: A&O x3, cranial nerves II-XII grossly intact, normal speech, moves all 4 extremities. No sensory deficits, good [id number]. 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 -- no current issues Pneumonia hx 2019 - treated at [facility] ADHD Anxiety Post traumatic stress disorder Depression Methamphetamine abuse hx - in remission since 2019 Surgical History H/O tubal ligation H/O wisdom tooth extraction History of delivery Family History Other Coronary heart disease No family history of adverse response to anesthesia Social History Smoking Status: Current every day smoker Tobacco Type: E-cigarettes / Vaping Cigarettes Per Day: 20 -- occasional vape; Second Hand Exposure: No; Do You Dip or Chew Tobacco: No; Hx Alcohol Use: No Hx Substance Use: Yes (uses medical THC currently) Last Used Substance: Unknown Last Used Substance Other:: 2020 in remission Substance Use Type Other:: methamphetamine Preferred Language: Afghan Communication Ability: Effective Nurses' Aide Required: No Beliefs That Will Affect Care: None Current Living Situation: Family Current Living Situation Comment: lives in an apartment with 2 daughters Feels Safe at Home: Yes Diet: regular caffeine: Yes Dental Care, Regularly: Yes Physical Activity Frequency: Does not Exercise Seatbelt Use: always Sunscreen Use: Yes Assistive Devices: None Allergies Allergies Allergy/AdvReac Type Severity Reaction Status Date / Time lamotrigine [From Lamictal] Allergy Severe Preciado-Juan Carlos Verified 02/05/24 09:25 Syndrome Bactrim Allergy Intermediate HIVES Verified 10/07/15 01:17 sulfamethoxazole Allergy Intermediate HIVES Verified 02/05/24 09:25 trimethoprim Allergy Intermediate HIVES Verified 02/05/24 09:25 Home Meds Home Medications Medication Instructions Recorded Confirmed Medical Marijuana 1 dose inhalation UD PRN Anxiety 02/25/23 08/12/24 multivitamin 1 tab PO QAM 02/25/23 08/12/24 duloxetine 40 mg capsule,delayed 40 mg PO QAM 10/14/23 08/12/24 release bupropion HCl 200 mg tablet,12 hr 300 mg PO QAM 02/05/24 08/12/24 sustained-release lisdexamfetamine 20 mg capsule 20 mg PO QAM 02/05/24 08/12/24 Results & Data (ED) Vital Signs Vital Signs - 24 hr 08/12/24 10:34 08/12/24 10:39 08/12/24 10:41 Temperature 38.3 C H Temperature Source Oral Pulse Rate 89 95 H Pulse Rate [Right Finger] Pulse Rate from SpO2 Sensor 89 Respiratory Rate 22 16 Respiratory Effort / Characteristics Non-Labored Spontaneous Respiratory Depth Normal Respiratory Pattern Blood Pressure 100/69 100/68 Blood Pressure [Right Arm] Blood Pressure Mean 84 78 Blood Pressure Mean [Right Arm] Pulse Oximetry 94 93 Oxygen Delivery Method Room Air Sepsis Recent Fever Within 48 Hours Yes Sepsis New/Unexplained Change in Mental Status No Sepsis Action Taken by Nursing No Action Required 08/12/24 10:47 08/12/24 11:18 08/12/24 12:00 Temperature Temperature Source Pulse Rate 83 Pulse Rate [Right Finger] 70 Pulse Rate from SpO2 Sensor 82 Respiratory Rate 23 18 Respiratory Effort / Characteristics Non-Labored Spontaneous Respiratory Depth Normal Respiratory Pattern Regular Blood Pressure Blood Pressure [Right Arm] 98/58 L Blood Pressure Mean Blood Pressure Mean [Right Arm] 71 Pulse Oximetry 94 93 93 Oxygen Delivery Method Room Air Room Air Sepsis Recent Fever Within 48 Hours Sepsis New/Unexplained Change in Mental Status Sepsis Action Taken by Nursing 08/12/24 12:00 08/12/24 12:00 08/12/24 12:41 Temperature Temperature Source Pulse Rate 72 71 Pulse Rate [Right Finger] Pulse Rate from SpO2 Sensor 73 Respiratory Rate Respiratory Effort / Characteristics Respiratory Depth Respiratory Pattern Blood Pressure 98/58 L Blood Pressure [Right Arm] Blood Pressure Mean 73 Blood Pressure Mean [Right Arm] Pulse Oximetry 92 Oxygen Delivery Method Sepsis Recent Fever Within 48 Hours Sepsis New/Unexplained Change in Mental Status Sepsis Action Taken by Custodial Medications Current Medication List: was personally reviewed by me Laboratory Data Attestation: I reviewed the patient's lab results. 08/12/24 10:37 08/12/24 10:37 Lab Results 08/12/24 Range/Units 10:37 WBC 14.40 H (4.8-10.8) K/ul RBC 4.17 L (4.20-5.40) M/uL Hgb 13.0 (12.0-16.0) g/dl Hct 37.0 (37.0-47.0) % MCV 88.7 (80.0-100.0) fL MCH 31.2 (25.0-34.0) pg MCHC 35.1 (32.0-36.0) g/dL RDW Std Deviation 35.8 L (36.4-46.3) fL RDW Coeff of Kulwinder 11.1 L (11.5-14.5) % Plt Count 256 (130-400) K/uL MPV 9.9 (9.4-12.4) fL Immature Gran % (Auto) 0.6 % Neut % (Auto) 87.1 % Lymph % (Auto) 7.3 % Hanson % (Auto) 4.7 % Eos % (Auto) 0.0 % Baso % (Auto) 0.3 % Neut # (Auto) 12.54 H (1.40-6.50) K/uL Lymph # (Auto) 1.05 L (1.20-3.40) K/uL Hanson # (Auto) 0.68 H (0.11-0.59) K/uL Eos # (Auto) 0.00 (0.00-0.50) K/uL Baso # (Auto) 0.04 (0.00-0.20) K/uL Immature Gran # (Auto) 0.09 (0.01-0.20) K/uL Sodium 125 L (136-145) mmol/L Potassium 3.8 (3.5-5.1) mmol/L Chloride 94 L (98-107) mmol/L Carbon Dioxide 21 (21-32) mmol/L Anion Gap 10 (3-11) BUN 9 (6-23) mg/dl Creatinine 0.87 (0.6-1.2) mg/dl Est Cr Clr Drug Dosing 87.0 ml/min Est GFR ( Amer) 97.3 ml/min Est GFR (Non-Af Amer) 83.9 ml/min BUN/Creatinine Ratio 10.3 (10-20) Glucose 105 H (70-99(Fasting)) mg/dl Osmolality 261 L (280-300) mOsm/kg Calcium 8.4 L (8.6-10.3) mg/dl Total Bilirubin 0.5 (0.2-1.0) mg/dl AST 23 (13-39) U/L ALT 48 (7-52) U/L Alkaline Phosphatase 73 (34-104) U/L Total Protein 6.8 (6.0-8.3) gm/dl Albumin 3.7 (3.4-5.0) gm/dl Globulin 3.1 (2.5-4.0) gm/dl Albumin/Globulin Ratio 1.2 (0.9-2) Adenovirus (PCR) Not Detected (NotDetected) B. pertussis DNA (PCR) Not Detected (NotDetected) B.parapertussis DNA PCR Not Detected (NotDetected) C. pneumoniae DNA (PCR) Not Detected (NotDetected) Coronavirus OC43 (PCR) Not Detected (NotDetected) Coronavirus HKU1 (PCR) Not Detected (NotDetected) Coronavirus 229E (PCR) Not Detected (NotDetected) SARS-CoV-2 (PCR) Not Detected (NotDetected) Coronavirus NL63 (PCR) Not Detected (NotDetected) Human Metapneumovir PCR Not Detected (NotDetected) Influenza Type A (PCR) Not Detected (NotDetected) Influenza Type B (PCR) Not Detected (NotDetected) M. pneumoniae (PCR) Not Detected (NotDetected) Parainfluenza 1 (PCR) Not Detected (NotDetected) Parainfluenza 2 (PCR) Not Detected (NotDetected) Parainfluenza 3 (PCR) Not Detected (NotDetected) Parainfluenza 4 (PCR) Not Detected (NotDetected) RSV (PCR) Not Detected (NotDetected) Entero/Rhino (PCR) Not Detected (NotDetected) Administered Medications Discontinued Medications Acetaminophen (Acetaminophen 1000 Mg/100 Ml Iv) 1,000 mg IV NOW STA Stop: 08/12/24 10:45 Last Admin: 08/12/24 10:51 Dose: Not Given Documented By: JUDSON Azithromycin (Azithromycin 250 Mg Tab) 500 mg PO NOW ONE Stop: 08/12/24 12:04 Last Admin: 08/12/24 12:26 Dose: 500 mg Documented By: Dexamethasone Sodium Phosphate (DexamethasonePf 10 Mg/Ml Vial) 10 mg IV NOW ONE Stop: 08/12/24 11:04 Last Admin: 08/12/24 11:13 Dose: 10 mg Documented By: JUDSON Diphenhydramine HCl (Diphenhydramine 50 Mg/Ml Vial) 25 mg IV NOW STA Stop: 08/12/24 11:04 Last Admin: 08/12/24 11:12 Dose: 25 mg Documented By: JUDSON Sodium Chloride (Nss) 1,000 mls @ 999 mls/hr IV .Q1H1M WILNER Stop: 08/12/24 11:45 Last Infusion: 08/12/24 12:37 Dose: Infused Documented By: Admin: 08/12/24 10:53 Dose: 999 mls/hr Documented By: JUDSON Magnesium Sulfate/Dextrose (Magnesium Sulfate / D5w) 1 gm in 100 mls @ 300 mls/hr IV NOW ONE Stop: 08/12/24 11:03 Last Infusion: 08/12/24 11:19 Dose: Infused Documented By: Admin: 08/12/24 10:53 Dose: 300 mls/hr Documented By: JUDSON Ceftriaxone Sodium (Rocephin) 2,000 mg in 50 mls @ 100 mls/hr IV NOW STA Stop: 08/12/24 12:32 Last Infusion: 08/12/24 13:02 Dose: Infused Documented By: Admin: 08/12/24 12:27 Dose: 100 mls/hr Documented By: Ondansetron HCl (Ondansetron Inj 2 Mg/Ml 2 Ml Vial) 4 mg IV NOW STA Stop: 08/12/24 10:45 Last Admin: 08/12/24 10:52 Dose: Not Given Documented By: JUDSON Prochlorperazine (Prochlorperazine 5 Mg/Ml 2 Ml Vial) 10 mg IV NOW STA Stop: 08/12/24 11:04 Last Admin: 08/12/24 11:12 Dose: 10 mg Documented By: JUDSON Imaging Data Radiologist's Impression: Head CT 08/12/24 10:44 CT head/brain wo con CLINICAL HISTORY: 39 years-old Female with Headache. Acute headache TECHNIQUE: Multiple axial CT images of the head were obtained without contrast. A dose lowering technique was utilized adhering to the principles of ALARA. CT DOSE: 625.8 mGy.cm COMPARISON: None. FINDINGS: No acute intracranial hemorrhage, midline shift, intracranial mass, hydrocephalus, territorial ischemia or abnormal extra-axial collection. The calvarium is intact. There is [id number] mucosal thickening of the imaged paranasal sinuses. The mastoid air cells are generally clear. Unremarkable soft tissues. IMPRESSION: No acute intracranial abnormality. ACT 112: Negative or not required by law. The above report was generated using voice recognition software. It may contain grammatical, syntax or spelling errors. Electronically signed by: Wes Stevens M.D. 08/12/2024 11:24 AM Chest X-Ray 08/12/24 11:14 XR chest 1V portable CLINICAL HISTORY: Cough and fever. COMPARISON STUDY: Chest CT August 30, 2019. Chest radiograph September 01, 2019. FINDINGS: There is no pneumothorax or pleural effusion. Extensive right lower lung consolidation is present. Left lung is clear. Cardiac size is normal. Mediastinal contours are normal. Pulmonary vascularity is normal. IMPRESSION: Extensive right lower lung consolidation suggestive of pneumonia. Post radiographs to ensure resolution are recommended. ACT 112: Negative or not required by law. Electronically signed by: Gianni Thakur M.D. 08/12/2024 12:19 PM Discharge Plan Visit Data Chief Complaint: Headache Stated Complaint: MIGRAINE ED Provider: Shukri Dennis Discharge Problem: Right lower lobe pneumonia, Hyponatremia, Headache, Fever Discharge Instructions Interventions: ED Discharge Assessment Last Done: 08/12/24 14:26 Discharge Problem: Right lower lobe pneumonia Qualifiers: Pneumonia type: due to unspecified organism Qualified Code(s): J18.9 - Pneumonia, unspecified organism Headache Qualifiers: Headache type: unspecified Headache chronicity pattern: acute headache I ntractability: not intractable Qualified Code(s): R51.9 - Headache, unspecified Fever Qualifiers: Fever type: unspecified Qualified Code(s): R50.9 - Fever, unspecified
[2024-08-12] MEDS: ACETAMINOPHEN 1000 MG/100 ML IV IV STA (10:51)
[2024-08-12] MEDS: ONDANSETRON INJ 2 MG/ML 2 ML VIAL IV STA (10:52)
[2024-08-12] MEDS: SODIUM CHLORIDE 0.9% 1,000 ML IV SCH (10:53)
[2024-08-12] MEDS: MAGNESIUM SULFATE / D5W 1 GM/100 ML BAG IV ONE (10:53)
[2024-08-12 11:03] LABS: Basophils # (auto) 0.04 K/uL (0.00-0.20); Basophils % (auto) 0.3 %; Immature Granulocytes # (auto) 0.09 K/uL (0.01-0.20); Immature Granulocytes % (auto) 0.6 %; Lymphocytes # (auto) 1.05 K/uL (1.20-3.40); Lymphocytes % (auto) 7.3 %; Mean Corpuscular Hemoglobin 31.2 pg (25.0-34.0); Mean Corpuscular Hgb Conc 35.1 g/dL (32.0-36.0); Mean Corpuscular Volume 88.7 fL (80.0-100.0); Mean Platelet Volume 9.9 fL (9.4-12.4); Monocytes # (auto) 0.68 K/uL (0.11-0.59); Monocytes % (auto) 4.7 %; Neutrophils # (auto) 12.54 K/uL (1.40-6.50); Neutrophils % (auto) 87.1 %; Platelet Count 256 K/uL (130-400); RDW Coefficient of Variation 11.1 % (11.5-14.5); RDW Standard Deviation 35.8 fL (36.4-46.3); Red Blood Count 4.17 M/uL (4.20-5.40)
[2024-08-12] MEDS: PROCHLORPERAZINE 5 MG/ML 2 ML VIAL IV STA (11:12)
[2024-08-12] MEDS: diphenhydrAMINE 50 MG/ML VIAL IV STA (11:12)
[2024-08-12] MEDS: dexAMETHasone**PF** 10 MG/ML VIAL IV ONE (11:13)
[2024-08-12 11:20] LABS: Albumin Globulin Ratio 1.2 (0.9-2); Albumin Level 3.7 gm/dl (3.4-5.0); BUN Creatinine Ratio 10.3 (10-20); Bilirubin,Total 0.5 mg/dl (0.2-1.0); Calcium 8.4 mg/dl (8.6-10.3); Est GFR (African American) 97.3 ml/min; Est GFR (Non-African American) 83.9 ml/min; Globulin 3.1 gm/dl (2.5-4.0); Potassium 3.8 mmol/L (3.5-5.1); Total Protein 6.8 gm/dl (6.0-8.3)
--- NOTE | 2024-08-12 11:26 | CT Scan Report ---
CT head/brain wo con CLINICAL HISTORY: 39 years-old Female with Headache. Acute headache TECHNIQUE: Multiple axial CT images of the head were obtained without contrast. A dose lowering tech nique was utilized adhering to the principles of ALARA. CT DOSE: 625.8 mGy.cm COMPARISON: None. FINDINGS: No acute intracranial hemorrhage, midline shift, intracranial mass, hydrocephalus, territorial ischem ia or abnormal extra-axial collection. The calvarium is intact. There is [id number] mucosal thickening of the imaged paranasal sinuse s. The mastoid air cells are generally clear. Unremarkable soft tissues. IMPRESSION: No acute intracranial abnormality. ACT 112: Negative or not required by law. The above report was generated using voice recognition software. It may contain grammatical, syntax o r spelling errors. Electronically signed by: Wes Stevens M.D. 08/12/2024 11:24 AM
[2024-08-12 11:51] LABS: Adenovirus PCR Not Detected (NotDetected); Bordetella parapertussis PCR Not Detected (NotDetected); Bordetella pertussis PCR Not Detected (NotDetected); Chlamydia pneumoniae PCR Not Detected (NotDetected); Coronavirus 229E PCR Not Detected (NotDetected); Coronavirus CoV-2 (COVID19)PCR Not Detected (NotDetected); Coronavirus HKU1 PCR Not Detected (NotDetected); Coronavirus NL63 PCR Not Detected (NotDetected); Coronavirus OC43PCR Not Detected (NotDetected); Human Metapneumovirus PCR Not Detected (NotDetected); Influenza A PCR Not Detected (NotDetected); Influenza B PCR Not Detected (NotDetected); Mycoplasma pneumoniae PCR Not Detected (NotDetected); Parainfluenza Virus 1 PCR Not Detected (NotDetected); Parainfluenza Virus 2 PCR Not Detected (NotDetected); Parainfluenza Virus 3 PCR Not Detected (NotDetected); Parainfluenza Virus 4 PCR Not Detected (NotDetected); Respiratory Syncytial VirusPCR Not Detected (NotDetected); Rhinovirus/Enterovirus PCR Not Detected (NotDetected)
--- NOTE | 2024-08-12 12:21 | XRay Report ---
XR chest 1V portable CLINICAL HISTORY: Cough and fever. COMPARISON STUDY: Chest CT August 30, 2019. Chest radiograph September 01, 2019. FINDINGS: There is no pneumothorax or pleural effusion. Extensive right lower lung consolidation is p resent. Left lung is clear. Cardiac size is normal. Mediastinal contours are normal. Pulmonary vascul arity is normal. IMPRESSION: Extensive right lower lung consolidation suggestive of pneumonia. Post radiographs to en sure resolution are recommended. ACT 112: Negative or not required by law. Electronically signed by: Gianni Thakur M.D. 08/12/2024 12:19 PM
[2024-08-12] MEDS: AZITHROMYCIN 250 MG TAB PO ONE (12:26)
[2024-08-12] MEDS: cefTRIAXone SODIUM 2,000 MG/50 ML BAG IV STA (12:27)
--- NOTE | 2024-08-12 12:59 | History & Physical Report ---
Date of Service August 12, 2024 Assessment & Plan (1) Right lower lobe pneumonia: Plan: Right lower lobe pneumonia Chest x-ray with extensive right lower lung consolidation With associated hyponatremia Rocephin/azithromycin continued MRSA nare pending Patient with associated fever, sinus congestion, and headache. Does have some slight light sensitivity and sound sensitivity however does not have nuchal rigidity (2) Hyponatremia: Plan: Hyponatremia Acute, hypovolemic. Poor PO intake x1-2 weeks, +increased water intake S/p 1 L NSS in the ER remains volume contacted. +1L and will continue maintenance fluids Urine sodium pending Legionella testing pending BMP trended (3) Headache: Plan: Headache CThead without acute findings Patient had a headache with fever and endorse some photo/phono sensitivity on ER arrival. Following antibiotics, fluids, and treatments above her headache did completely resolve and she did not have any nuchal rigidity/manage numbness at any point. LP was offered to patient on initial ER assessment however as her headache completely resolved, and there is another clear source of infection prefer to defer this which seems reasonable; if symptoms return or worsen then can reconsider LP at that point. Plan DVT prophylaxis: Low risk, ambulate/SCDs Diet: Regular Disposition: MS/S CODE STATUS, full code History of Present Illness Primary Care Provider: BHAKTI Faustin is a 39-year-old female who presents with headache, fever, chest congestion for 2 days. No history of migraines, does have a headache with passivity to light and sound. Has some right sided ear pain. Reports she had a cough which developed 2 weeks ago, progressively worsened, and then has just stayed the same and feels congested in her chest. Coughing up yellow-brown sputum for the last two weeks. Has felt feverish, 38.3*C in ER. +Night sweats. Denies neck stiffness. Has had some sensitivity to light and sound which has completely resolved at time of hospitalist assessment. Headache is nearly completely resolved. No chest pain No chest pressure no shortness of breath No nausea, vomiting, or diarrhea Appetite is diminished. Drinking a lot fo water, but has not eaten anything in several days due to feeling poorly. Medical History: Reviewed Medications: Reviewed Does not take any prescription medication. Surgical History: Reviewed Family history: Reviewed Allergies: Reviewed. Hx SJS to lamictal, hx of hives to bactrim Social History: +Vape use several times daily. no cigarette use. Would like a nicotine patch. No ETOH use. Denies recreational/IVDU. Code Status: Full Allergies Allergy/AdvReac Type Severity Reaction Status Date / Time lamotrigine [From Lamictal] Allergy Severe Preciado-Juan Carlos Verified 02/05/24 09:25 Syndrome Bactrim Allergy Intermediate HIVES Verified 10/07/15 01:17 sulfamethoxazole Allergy Intermediate HIVES Verified 02/05/24 09:25 trimethoprim Allergy Intermediate HIVES Verified 02/05/24 09:25 Home Medications Medication Instructions Recorded Confirmed Type Medical Marijuana 1 dose inhalation UD PRN Anxiety 02/25/23 02/05/24 History multivitamin 1 tab PO QAM 02/25/23 02/05/24 History duloxetine 40 mg capsule,delayed 40 mg PO QAM 10/14/23 02/05/24 History release bupropion HCl 200 mg tablet,12 hr 300 mg PO QAM 02/05/24 02/05/24 History sustained-release clotrimazole 1 % topical cream 1 applic topical BID 4 weeks #45 02/05/24 02/05/24 Rx grams lisdexamfetamine 20 mg capsule 20 mg PO QAM 02/05/24 02/05/24 History Past Med/Surg History Problem List (Updated 08/12/24 @ 12:52 by Carlos Rausch MD) Headache Hyponatremia Right lower lobe pneumonia Family history of colon cancer Encounter for pre-operative examination Peripheral venous insufficiency Left hand - middle finger History of intravenous drug use in remission Bipolar disorder Medical History History of Preciado-Juan Carlos toxic epidermal necrolysis overlap syndrome (~2018) while taking lamictal -- no current issues Pneumonia hx 2019 - treated at [facility] ADHD Anxiety Post traumatic stress disorder Depression Methamphetamine abuse hx - in remission since 2019 Surgical History H/O tubal ligation H/O wisdom tooth extraction History of delivery Family History Other Coronary heart disease No family history of adverse response to anesthesia Social History Smoking Status: Current every day smoker Tobacco Type: E-cigarettes / Vaping Cigarettes Per Day: 20 -- occasional vape; Second Hand Exposure: No; Do You Dip or Chew Tobacco: No; Hx Alcohol Use: No Hx Substance Use: Yes (uses medical THC currently) Last Used Substance: Unknown Last Used Substance Other:: 2020 in remission Substance Use Type Other:: methamphetamine Preferred Language: Danish Communication Ability: Effective Supply Chain Coordinator Required: No Beliefs That Will Affect Care: None Current Living Situation: Family Current Living Situation Comment: lives in an apartment with 2 daughters Feels Safe at Home: Yes Diet: regular caffeine: Yes Dental Care, Regularly: Yes Physical Activity Frequency: Does not Exercise Seatbelt Use: always Sunscreen Use: Yes Assistive Devices: None Physical Exam Physical Exam: General: A&Ox3. NAD. Cooperative. HEENT: Atraumatic, normocephalic. Vision/hearing intact. Pupils equal and reactive to light. No nuchal rigidity. Kernig's and Brudzinski's negative Pulm: RLL diminished, coarse. -wheezes, -rales, -rhonchi. Symmetrical chest rise. No increased work of breathing. No respiratory distress. Cardiac: RRR, -mrg. Radial pulses intact and symmetrical. Abdominal: Nontender, nondistended, soft. BS present. Ext: warm, dry Results & Data Results & Data Vital Signs (Past 12 Hours) Vital Signs Temp Pulse Pulse Resp BP BP Pulse Ox 08/12/24 12:41 71 08/12/24 12:00 70 18 98/58 L 93 08/12/24 10:47 94 08/12/24 10:41 38.3 C H 95 H 16 100/68 93 O2 Del Method 08/12/24 12:41 08/12/24 12:00 Room Air 08/12/24 10:47 Room Air 08/12/24 10:41 Room Air PG Care Time/CCT Total # of Minutes Spent Total Time Spent with Patient: Total time spent is greater than 50% in coordination of care (as documented) at patient's floor/unit and/or counseling patient: Coding Level of Care Code 21258 INT INP/OBS CARE 3/75MIN Diagnoses Right lower lobe pneumonia J18.9 Hyponatremia E87.1 Headache R51.9
[2024-08-12 14:09] LABS: Urine Chloride < 15 mmol/L; Urine Potassium 24.9 mmol/L; Urine Sodium 11 mmol/L
[2024-08-12] MEDS: ACETAMINOPHEN 325 MG TAB PO PRN (21:23)
[2024-08-13] MEDS: KETOROLAC TROMETHAMINE 15 MG/ML VIAL IV PRN (02:51)
[2024-08-13 07:23] LABS: Basophils # (auto) 0.01 K/uL (0.00-0.20); Basophils % (auto) 0.1 %; Hematocrit (blood only) 37.1 % (37.0-47.0); Hemoglobin 13.1 g/dl (12.0-16.0); Immature Granulocytes # (auto) 0.06 K/uL (0.01-0.20); Immature Granulocytes % (auto) 0.5 %; Lymphocytes # (auto) 0.51 K/uL (1.20-3.40); Lymphocytes % (auto) 4.2 %; Mean Corpuscular Hemoglobin 31.4 pg (25.0-34.0); Mean Corpuscular Hgb Conc 35.3 g/dL (32.0-36.0); Mean Platelet Volume 10.5 fL (9.4-12.4); Monocytes % (auto) 6.6 %; Neutrophils # (auto) 10.78 K/uL (1.40-6.50); Neutrophils % (auto) 88.6 %; Platelet Count 258 K/uL (130-400); RDW Coefficient of Variation 11.2 % (11.5-14.5); RDW Standard Deviation 36.1 fL (36.4-46.3); Red Blood Count 4.17 M/uL (4.20-5.40); White Blood Count 12.16 K/ul (4.8-10.8)
[2024-08-13 07:36] LABS: Creatinine Clr Calc Pharmacy 115.1 ml/min; Est GFR (African American) 126.5 ml/min; Est GFR (Non-African American) 109.1 ml/min; Potassium 4.3 mmol/L (3.5-5.1)
[2024-08-13] MEDS: AZITHROMYCIN 250 MG TAB PO SCH (11:24)
[2024-08-13] MEDS: cefTRIAXone SODIUM 2,000 MG/50 ML BAG IV SCH (13:11)
--- NOTE | 2024-08-13 16:45 | Hospitalist Progress Note ---
Date of Service August 13, 2024 Assessment & Plan (1) Right lower lobe pneumonia: Plan: Right lower lobe pneumonia Chest x-ray with extensive right lower lung consolidation With associated fever, sinus congestion, and headache. Does have some slight light sensitivity and sound sensitivity, however does not have nuchal rigidity. MRSA nares negative Continue ceftriaxone and azithromycin (2) Hyponatremia: Plan: Sodium of 125 on admission Acute, hypovolemic. Poor PO intake x1-2 weeks, +increased water intake. Suspect hyponatremia secondary to volume depletion. Urine sodium 11 on admission Received 2 L of IVF on admission, sodium responded appropriately to 134 Continue to monitor on a.m. labs (3) Headache: Plan: Headache CThead without acute findings Patient had a headache with fever and endorse some photo/phono sensitivity on ER arrival. Following antibiotics, fluids, and treatments above her headache did completely resolve and she did not have any nuchal rigidity/manage numbness at any point. LP was offered to patient on initial ER assessment however as her headache completely resolved, and there is another clear source of infection prefer to defer this which seems reasonable; if symptoms return or worsen then can reconsider LP at that point. Plan Ordered nasal MRSA swab Ordered Zofran DVT prophylaxis: Low risk, ambulate/SCDs CODE STATUS: Full code Admission and Anticipated Discharge Date Admission Date: August 12, 2024 Supervising Physician Co-Signing Physician Notes Attending Attestation - Chart reviewed, care plan d/w JOAQUÍN Wright. I agree w/ the marcos components of her documentation. Cont IV abx for lobar pneumonia - RLL. h/o vaping - provide counseling to quit. Vitals are stable. Isma Benavides MD Subjective Patient seen and evaluated at bedside. She reports that she is feeling much better today compared to yesterday, but still less than her baseline. She complains of a headache which she notes is similar to prior headaches. She has some minimal photophobia, no nuchal rigidity. She continues to have a productive cough. She denies any shortness of breath or chest pain, lightheadedness or dizziness. We discussed continued inpatient hospitalization for further IV antibiotics and monitoring, patient is agreeable and hopeful for discharge tomorrow. No additional complaints or concerns at this time. Physical Exam Physical Exam: General: No acute distress, nondiaphoretic, well-developed, well-nourished. Skin: The skin was without rashes, erythema, edema, or bruising. Cardiac: Regular rate and rhythm without murmurs gallops or rubs. Pulm: Diminished breath sounds in right lower lobe. No wheezing, rales or rhonchi. No respiratory distress. 95% on room air. Abdominal: Soft, nontender, nondistended. Bowel sounds present. Neuro: A&O x3. No focal neurological deficits. Results & Data Results & Data Vital Signs (Past 12 Hours) Vital Signs Temp Pulse Resp BP Pulse Ox O2 Del Method 08/13/24 15:27 98.1 F 57 L 17 109/72 95 Room Air 08/13/24 08:57 Room Air 08/13/24 07:22 98.1 F 63 17 117/73 98 Room Air Laboratory Results Reviewed CBC Reviewed BMP Reviewed nasal screen MRSA PG Care Time/CCT Total # of Minutes Spent Total Time Spent with Patient: Total time spent is greater than 50% in coordination of care (as documented) at patient's floor/unit and/or counseling patient: Coding Level of Care Code 23739 SUB INP/OBS CARE 2/35MIN Diagnoses Right lower lobe pneumonia J18.9 Pneumonia type: due to unspecified organism Hyponatremia E87.1 Headache R51.9 Headache chronicity pattern: acute headache Headache type: unspecified Intractability: not intractable (1) Right lower lobe pneumonia Pneumonia type: due to unspecified organism Qualified Code(s): J18.9 - Pneumonia, unspecified organism (3) Headache Headache chronicity pattern: acute headache Headache type: unspecified Intractability: not intractable Qualified Code(s): R51.9 - Headache, unspecified
[2024-08-13] MEDS: ONDANSETRON INJ 2 MG/ML 2 ML VIAL IV PRN (17:55)
[2024-08-13] MEDS: MELATONIN 3 MG TAB PO PRN (21:49)
[2024-08-14 06:47] LABS: Basophils # (auto) 0.02 K/uL (0.00-0.20); Basophils % (auto) 0.3 %; Eosinophils # (auto) 0.11 K/uL (0.00-0.50); Eosinophils % (auto) 1.5 %; Hematocrit (blood only) 35.6 % (37.0-47.0); Hemoglobin 12.1 g/dl (12.0-16.0); Immature Granulocytes # (auto) 0.02 K/uL (0.01-0.20); Immature Granulocytes % (auto) 0.3 %; Lymphocytes # (auto) 1.76 K/uL (1.20-3.40); Lymphocytes % (auto) 23.3 %; Mean Corpuscular Volume 91.3 fL (80.0-100.0); Mean Platelet Volume 10.3 fL (9.4-12.4); Monocytes # (auto) 0.97 K/uL (0.11-0.59); Monocytes % (auto) 12.8 %; Neutrophils # (auto) 4.68 K/uL (1.40-6.50); Neutrophils % (auto) 61.8 %; Platelet Count 267 K/uL (130-400); RDW Coefficient of Variation 11.4 % (11.5-14.5); RDW Standard Deviation 38.2 fL (36.4-46.3); White Blood Count 7.56 K/ul (4.8-10.8)
[2024-08-14 07:11] LABS: BUN Creatinine Ratio 18.1 (10-20); Calcium 8.9 mg/dl (8.6-10.3); Creatinine Clr Calc Pharmacy 111.9 ml/min; Est GFR (African American) 122.3 ml/min; Est GFR (Non-African American) 105.5 ml/min; Potassium 3.7 mmol/L (3.5-5.1)
[2024-08-14 07:39] VITALS: BP 125/83; TEMP 97.5
--- NOTE | 2024-08-14 10:53 | Discharge Summary ---
Discharge Summary Date of Service August 14, 2024 Principal Dx & Hospital Course #1 = Principal Diagnosis (1) Right lower lobe pneumonia: Right lower lobe pneumonia Chest x-ray with extensive right lower lung consolidation With associated fever, sinus congestion, and headache. Does have some slight light sensitivity and sound sensitivity, however does not have nuchal rigidity. MRSA nares negative Treated with ceftriaxone and azithromycin while hospitalized Counseled on nicotine/tobacco cessation, including vaping Discharged on Levaquin 750 mg daily x 5 days, Albuterol 2 puffs every 4 hours as needed for cough/wheezing/shortness of breath, Zofran as needed for nausea. Continue incentive spirometer and flutter valve. Recommend PCP follow-up in 1 week Recommend repeat CXR in 1 month to monitor for resolution of pneumonia (2) Hyponatremia: Sodium of 125 on admission Acute, hypovolemic. Poor PO intake x1-2 weeks, +increased water intake. Suspect hyponatremia secondary to volume depletion. Urine sodium 11 on admission. Received 2 L of IVF on admission. Sodium augmented appropriately and normal at 140 on day of discharge. (3) Headache: Headache CThead without acute findings Patient had a headache with fever and endorse some photo/phono sensitivity on ER arrival. Following antibiotics, fluids, and treatments above her headache did completely resolve and she did not have any nuchal rigidity/manage numbness at any point. LP was offered to patient on initial ER assessment however as her headache completely resolved, and there is another clear source of infection prefer to defer this which seems reasonable; if symptoms return or worsen then can reconsider LP at that point. Plan CODE STATUS: Full code Notes For Next Care Provider Patient admitted with significant right lower lobe pneumonia. Treated with ceftriaxone and azithromycin while hospitalized. Discharged on Levaquin 750 mg daily x 5 days. Recommend PCP follow-up in 1 week. Recommend repeat chest x-ray in 1 month to monitor for resolution of pneumonia will defer this order to PCP. Medication Changes From Visit No changes to daily medications Levaquin 750 mg daily x 5 days Albuterol 2 puffs every 4 hours as needed for cough/wheezing/shortness of breath Zofran as needed for nausea Admission HPI Per Admitting Provider Gertrude is a 39-year-old female who presents with headache, fever, chest congestion for 2 days. No history of migraines, does have a headache with passivity to light and sound. Has some right sided ear pain. Reports she had a cough which developed 2 weeks ago, progressively worsened, and then has just stayed the same and feels congested in her chest. Coughing up yellow-brown sputum for the last two weeks. Has felt feverish, 38.3*C in ER. +Night sweats. Denies neck stiffness. Has had some sensitivity to light and sound which has completely resolved at time of hospitalist assessment. Headache is nearly completely resolved. No chest pain No chest pressure no shortness of breath No nausea, vomiting, or diarrhea Appetite is diminished. Drinking a lot fo water, but has not eaten anything in several days due to feeling poorly. Medical History: Reviewed Medications: Reviewed Does not take any prescription medication. Surgical History: Reviewed Family history: Reviewed Allergies: Reviewed. Hx SJS to lamictal, hx of hives to bactrim Social History: +Vape use several times daily. no cigarette use. Would like a nicotine patch. No ETOH use. Denies recreational/IVDU. Code Status: Full Admission Exam Per Admitting Provider General: A&Ox3. NAD. Cooperative. HEENT: Atraumatic, normocephalic. Vision/hearing intact. Pupils equal and reactive to light. No nuchal rigidity. Kernig's and Brudzinski's negative Pulm: RLL diminished, coarse. -wheezes, -rales, -rhonchi. Symmetrical chest rise. No increased work of breathing. No respiratory distress. Cardiac: RRR, -mrg. Radial pulses intact and symmetrical. Abdominal: Nontender, nondistended, soft. BS present. Ext: warm, dry Discharge Exam General: No acute distress, nondiaphoretic, well-developed, well-nourished. Skin: The skin was without rashes, erythema, edema, or bruising. Cardiac: Regular rate and rhythm without murmurs gallops or rubs. Pulm: Course/diminished breath sounds in right lower lobe. No wheezing, rales or rhonchi. No respiratory distress. 98% on room air. Abdominal: Soft, nontender, nondistended. Bowel sounds present. Neuro: A&O x3. No focal neurological deficits. Discharge Plan Discharge Items Patient Disposition: Home - Self-Care Reason For Visit: RLL PNA Discharge Diagnosis: Right lower lobe pneumonia Activity: Per Instructions section Non-emergency contact: Primary Care Provider Call non-emergency contact if: you have any medication questions, your symptoms worsen and you have a fever Follow-up/Referrals: Peg Oreilly CRNP [Primary Care Provider] - (Follow-up in 1 week) Diet: Regular Addtl Attending Provider Instructions: Micheline, Pan were admitted to the hospital because of [a right lower lobe] pneumonia. Pneumonia is no infection of the lung, which is most commonly caused by bacteria, but could also be caused by virus or fungus. Pneumonia causes the bronchioles in the alveoli of your lungs to fill with excess mucus or pus and become inflamed. Your body's response may be to cough. This can help clear out the fluid. The fluid (mucus) cough unable green or dark yellow. The excess mucus may make you feel short of breath. The inflammation or infection may give you a fever. Common symptoms of pneumonia may include: Severe cough with a green or yellow mucus that does not get better, fever and chills, nausea, vomiting, diarrhea, loss of appetite, shortness of breath with normal daily activities, increased heart rate, chest pain or discomfort when breathing and or coughing, headache, a lot of sweating and clammy skin, severe tiredness. Antibiotics are needed for pneumonia caused by bacteria. You were treated with IV antibiotics while in the hospital, and are being discharged home with oral antibiotics to continue your treatment course. You have a significant pneumonia, and likely will not feel better for 1-2 weeks. Secondary infections can arise so if fevers develop, your symptoms worsen or you develop chest/lung pain/discomfort, please seek medical attention either via your PCP or return to the ED. Upon discharge from the hospital: * Take Levaquin (oral antibiotic) once daily x 5 days. It is important to complete this course of antibiotic, even if you begin to feel better. Not completing the course of antibiotics may result in your pneumonia coming back, or the bacteria may become resistant to treatment in the future. This prescription has been sent to the [facility] pharmacy on [facility]. * Take Albuterol 2 puffs every 4 hours as needed for cough/wheezing/shortness of breath. Use the spacer device provided. A handout has been attached to your discharge paperwork on how to use an inhaler with a spacer device. * Use the incentive spirometer and flutter valve as directed. * Take Tylenol and/or ibuprofen as needed for headache, body aches, or fever. * Take Zofran as needed for nausea. * Drink plenty of water daily. This may help to loosen and thin lung mucus so that you can cough it up. * Do not take medicines to suppress your cough unless your cough is dry, painful, or keeps you from sleep. Coughing up mucus is normal. It helps you recover. You may use an expectorant as needed [id number]-yzl-[id number] (OTC). * You can use warm compresses to relieve chest discomfort. You can do this several times a day for short periods of time. * Get plenty of rest until your symptoms resolve. * Get a repeat chest x-ray in 1 month to monitor for resolution of your pneumonia. Your PCP can order this repeat chest x-ray. * Follow-up with your PCP in 1 week. * Recommend discontinuation of nicotine/tobacco products, including vaping. Please contact your PCP if you experience any of the following: Fever of 100.5 F or higher, coughing up mucus that is yellow, green, bloody, or smells bad, coughing up large amounts of mucus, nausea with vomiting, symptoms that get worse, or new symptoms at present. Please return to the hospital if you experience any of the following: Chest pain, heart palpitations, shortness of breath, trouble breathing, trouble talking, lightheadedness, dizziness, or passing out. It was a pleasure taking care of you while you were in the hospital, Yaa Wright PA-C Pending Studies at Discharge: No Stand-Alone Forms: My [facility], Smoking Cessation Medications and DC Order Prescriptions: New levofloxacin 750 mg tablet 750 mg PO DAILY 5 Days Qty: 5 0RF ondansetron 4 mg tablet,disintegrating 4 mg PO Q6H PRN (Reason: nausea and vomiting) Qty: 30 0RF albuterol sulfate 90 mcg/actuation HFA aerosol inhaler 2 inh inhalation Q4H PRN (Reason: shortness of breath or wheezing) Qty: 8.5 0RF Continued Medical Marijuana 1 dose inhalation UD PRN (Reason: Anxiety) multivitamin Tablet 1 tab PO QAM lisdexamfetamine 20 mg capsule 20 mg PO QAM duloxetine 40 mg Capsule,Delayed Release(Dr/Ec) 40 mg PO QAM bupropion HCl 200 mg tablet sustained-release 12 hr 300 mg PO QAM Discharge Orders: Discharge Order (Routine); Ordered 08/14/24 Ordered By: Yaa Velazquez/Other Patient Handouts: Using an Inhaler with a Spacer, What Is Pneumonia?, Treating Pneumonia, When You Have Pneumonia Admission Data Admit Date/Time: 08/12/24 13:06 Attending Provider: Isma Benavides Admit Provider: Carlos Rausch Primary Care Provider: Peg Oreilly Other Providers: Carlos Rausch Hospital Stay Data Consultations 08/12/24 12:17 ED Decision to Admit Stat Diagnostic Imagining Performed Head CT 08/12/24 10:44 CT head/brain wo con CLINICAL HISTORY: 39 years-old Female with Headache. Acute headache TECHNIQUE: Multiple axial CT images of the head were obtained without contrast. A dose lowering technique was utilized adhering to the principles of ALARA. CT DOSE: 625.8 mGy.cm COMPARISON: None. FINDINGS: No acute intracranial hemorrhage, midline shift, intracranial mass, hydrocephalus, territorial ischemia or abnormal extra-axial collection. The calvarium is intact. There is [id number]-hv-lspirgxi mucosal thickening of the imaged paranasal sinuses. The mastoid air cells are generally clear. Unremarkable soft tissues. IMPRESSION: No acute intracranial abnormality. ACT 112: Negative or not required by law. The above report was generated using voice recognition software. It may contain grammatical, syntax or spelling errors. Electronically signed by: Wes Stevens M.D. 08/12/2024 11:24 AM Chest X-Ray 08/12/24 11:14 XR chest 1V portable CLINICAL HISTORY: Cough and fever. COMPARISON STUDY: Chest CT August 30, 2019. Chest radiograph September 01, 2019. FINDINGS: There is no pneumothorax or pleural effusion. Extensive right lower lung consolidation is present. Left lung is clear. Cardiac size is normal. Mediastinal contours are normal. Pulmonary vascularity is normal. IMPRESSION: Extensive right lower lung consolidation suggestive of pneumonia. Post radiographs to ensure resolution are recommended. ACT 112: Negative or not required by law. Electronically signed by: Gianni Thakur M.D. 08/12/2024 12:19 PM Pending Results Patient Have Any Pending Studies at Discharge: No Discharge Instructions Given to Patient (Per Discharging Provider) Micheline, You were admitted to the hospital because of [a right lower lobe] pneumonia. Pneumonia is no infection of the lung, which is most commonly caused by bacteria, but could also be caused by virus or fungus. Pneumonia causes the bronchioles in the alveoli of your lungs to fill with excess mucus or pus and become inflamed. Your body's response may be to cough. This can help clear out the fluid. The fluid (mucus) cough unable green or dark yellow. The excess mucus may make you feel short of breath. The inflammation or infection may give you a fever. Common symptoms of pneumonia may include: Severe cough with a green or yellow mucus that does not get better, fever and chills, nausea, v omiting, diarrhea, loss of appetite, shortness of breath with normal daily activities, increased heart rate, chest pain or discomfort when breathing and or coughing, headache, a lot of sweating and clammy skin, severe tiredness. Antibiotics are needed for pneumonia caused by bacteria. You were treated with IV antibiotics while in the hospital, and are being discharged home with oral antibiotics to continue your treatment course. You have a significant pneumonia, and likely will not feel better for 1-2 weeks. Secondary infections can arise so if fevers develop, your symptoms worsen or you develop chest/lung pain/discomfort, please seek medical attention either via your PCP or return to the ED. Upon discharge from the hospital: * Take Levaquin (oral antibiotic) once daily x 5 days. It is important to complete this course of antibiotic, even if you begin to feel better. Not completing the course of antibiotics may result in your pneumonia coming back, or the bacteria may become resistant to treatment in the future. This prescription has been sent to the [facility] pharmacy on [facility]. * Take Albuterol 2 puffs every 4 hours as needed for cough/wheezing/shortness of breath. Use the spacer device provided. A handout has been attached to your discharge paperwork on how to use an inhaler with a spacer device. * Use the incentive spirometer and flutter valve as directed. * Take Tylenol and/or ibuprofen as needed for headache, body aches, or fever. * Take Zofran as needed for nausea. * Drink plenty of water daily. This may help to loosen and thin lung mucus so that you can cough it up. * Do not take medicines to suppress your cough unless your cough is dry, painfu l, or keeps you from sleep. Coughing up mucus is normal. It helps you recover. You may use an expectorant as needed [id number]-[id number] (OTC). * You can use warm compresses to relieve chest discomfort. You can do this several times a day for short periods of time. * Get plenty of rest until your symptoms resolve. * Get a repeat chest x-ray in 1 month to monitor for resolution of your pneumonia. Your PCP can order this repeat chest x-ray. * Follow-up with your PCP in 1 week. * Recommend discontinuation of nicotine/tobacco products, including vaping. Please contact your PCP if you experience any of the following: Fever of 100.5 F or higher, coughing up mucus that is yellow, green, bloody, or smells bad, coughing up large amounts of mucus, nausea with vomiting, symptoms that get worse, or new symptoms at present. Please return to the hospital if you experience any of the following: Chest pain, heart palpitations, shortness of breath, trouble breathing, trouble talking, lightheadedness, dizziness, or passing out. It was a pleasure taking care of you while you were in the hospital, Yaa Wright PA-C Total Time Total Time Spent Total Time Spent (In Minutes): Greater than 30 minutes spent completing this discharge process including direct patient care, medication reconciliation, documentation, review of labs and image s, and coordination of care. Coding Level of Care Code 74234 INP/OBS DISCH >30 MIN Diagnoses Right lower lobe pneumonia J18.9 Pneumonia type: due to unspecified organism Hyponatremia E87.1 Headache R51.9 Headache chronicity pattern: acute headache Headache type: unspecified Intractability: not intractable
[2024-08-14] MEDS: ALBUTEROL HFA 8 GM INHALER INH ONE (11:24)
[2024-08-14 11:32] VITALS: PULSE 82; RESP 16; O2SAT 96
== END 2024-08-14 13:29 | disposition home or self-care (01) | DRG 194 ==
LOC: ED 10:30 → SUATTDRO 13:06 → EDINP 13:06 → 3W 14:26